=== PATIENT | female | born 1945 | race Caucasian/White ===

== ENCOUNTER 2016-02-18 02:58 | Emergency (ER) | payer MEDICARE, MEDICAID ==
[2016-02-18 02:59] VITALS: BMI 29.6
[2016-02-18] MEDS ORDERED: NS 1,000 ML IV ONE (03:08)
[2016-02-18 03:20] VITALS: TEMP 99.5
--- NOTE | 2016-02-18 03:42 | EDPRACDOC ---
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 fell out of bed injuring R hip, abrasion to R lower leg. BIB EMS and was given 75mcg fentanyl. On arrival no longer in pain. She denies striking her head or hurting her neck, no weakness or numbness. She has h/o Cirrhosis, DNR paperwork and recent ED visit paperwork with her. Pain Severity: Reports: Moderate Injuries/Pain Location: Reports: lower extremity Reason for Fall: Reports: unknown Loss of Consciousness: no loss of consciousness Modifying Factors: improves with: pain medication Associated Symptoms (Fall): Denies: chest pain, dizziness, headache Allergies/Adverse Reactions: Allergies ciprofloxacin [From Cipro] Allergy (Unknown, Verified 02/18/16 03:19) Rash-Generalized ciprofloxacin HCl [From Cipro] Allergy (Unknown, Verified 02/18/16 03:19) Rash-Generalized amoxicillin [Amoxicillin] Allergy (Verified 02/18/16 03:19) Rash-Generalized doxycycline Allergy (Verified 02/18/16 03:19) Rash-Generalized Home Medications: Ambulatory Orders Simvastatin [Zocor] 20 mg PO HS 09/07/12 Pantoprazole Sodium [Protonix] 40 mg PO BID 03/23/13 Fenofibrate [Lofibra] 160 mg PO HS 05/28/13 Gabapentin [Neurontin] 800 mg PO QID 05/28/13 Metformin HCl [Metformin HCl ER] 1,000 mg PO BID 06/20/13 Glipizide 5 mg PO BID 12/22/14 Insulin Aspart [Novolog] 0 units SQ .SSI 12/23/14 Ferrous Sulfate [Iron] 325 mg PO TID 12/27/14 Oxycodone HCl [Oxycodone Immediate Release] 10 mg PO Q8H PRN 04/09/15 Montelukast Sodium [Singulair] 10 mg PO HS #30 tablet 04/11/15 Insulin Glargine,Hum.rec.anlog [Toujeo Solostar] 70 unit SQ QAM 05/30/15 Carvedilol [Coreg] 3.125 mg PO BID 07/18/15 Lisinopril [Zestril] 5 mg PO DAILY 07/18/15 Nitroglycerin Patch [Nitro Dur] 0.4 mg TOP DAILY #30 patch 07/25/15 Hydroxyzine HCl 50 mg PO QHS 11/13/15 Lactulose [Constulose] 30 ml PO BID 11/13/15 Sucralfate [Carafate] 1 gm PO ACHS 11/26/15 Ondansetron [Zofran Odt] 4 mg PO Q6H PRN 02/18/16 Oxycodone HCl [Roxicodone] 5 mg PO Q4 PRN 02/18/16 Tramadol HCl 50 mg PO BID #12 tablet 02/18/16 ED Past Medical History - History Reviewed Yes Nurses notes reviewed and agree except as marked - Patient Medical History Neurological History: Reports: Cerebrovascular Accident (Yes- 2006), Dementia ( mild). Denies: Seizures Cardiac History: Reports: Coronary Artery Disease, Atrial Fibrillation ( paroxysmal), Hypertension, Congestive Heart Failure (Diastolic dysfunction seen on echocardiogram from May 2015), Stress Test (04/2015: negative for ischemia) , Hypercholesterolemia, Valvular Heart Disease (Aortic stneosis on cardiac US), Syncope Respiratory History: Reports: COPD (Home O2 at 3l/min), Pneumonia GI/ History: Reports: Urinary Tract Infection, Liver Failure (CRYTOGENIC CIRRHOSIS), Gastroesophageal Reflux, Ulcer (DU and esophageal ulcer in 2005), Diverticulosis Musculoskeletal History: Reports: Arthritis (and degenerative disc disease. Multiple vertebral compression fractures.) Psychological History: Reports: Anxiety. Denies: Depression, Substance Use Disorder Systemic History: Reports: Anemia, Diabetes (neuropathy). Denies: Cancer Surgical History: Reports: Cholecystectomy, Other (cataracts, carotid endartectomy-R) - Family Medical History Reports: Hypertension, Diabetes, Cancer (Mother - pancreatic; Sister - uterine; no family history of colon cancer), Cardiac Disorders (Coronary artery disease) . Denies: Stroke - Social Medical History Smoking Status: Former smoker Social History: Denies: Substance Use Disorder EDM Review of Systems - Review of Systems ROS Negative Except as Marked: Yes All systems reviewed and were negative except as marked - Physical Exam Constitutional: Alert (Awake), No apparent distress Oriented to: Time, Person, Place Last recorded Vital Signs: Last Vital Signs Temp 99.5 F 02/18/16 03:11 Pulse 79 02/18/16 03:11 Resp 22 02/18/16 03:11 BP 137/59 L 01/11/17 03:11 Pulse Ox 91 02/18/16 03:11 Oxygen Pulse Oxygen Saturation 91 O2 Device Nasal Cannula Oxygen Flow Rate 3 Fraction of Inspired Oxygen ( FIO2) - HEENT Head: Normal ( normocephalic) Eye Exam: Normal (PERRL, EOMI, Sclera white) Oropharynx: Normal (Pharynx:Moist without exudate,Gums-no swelling) Nose: No Symptoms Reported (septum midline) Neck: Normal (FROM, trachea at midline). negative: Crepitus, Step off, Tender - Respiratory/Cardiovascular Respiratory: Normal - CTA (BBS clear to auscultation without adventitious sounds ) Cardiovascular: Normal (RRR without murmur, gallop or rub) - GI Auscultation: Normal (NABS) Palpation: Normal (Soft,No rebound or guarding, non distended) Tenderness: Non tender - Musculoskeletal Back: Normal (Non-Tender) Extremities: Other (ttp ovr R hip, no deformity and distal N/V intact, pelvis stable. mild abrasion R kelsey no bony tendrness.) - Integumentary Skin: Normal, Warm, Dry Lymphatics: Normal (no adenopathy) - Neurologic Motor Function: Normal (Normal tone, Pulses 2+ No cyanosis or edema, FROM) Cranial Nerve: Normal (CN II-X11 intact sensation, strength 5/5) Cerebellar: Normal Mood Description: Normal - Re-evaluation Re-evaluation 1 Re-evaluation Time: 06:03 (still in pain R hip, has scheduled outpatient blood transfusion at 8am, will d/c with plan close follow up, consider MRI for any persistent R hip pain. ) - Results 02/18/16 03:35 02/18/16 03:35 - EKG EKG #1 EKG Time: 03:17 -: Yes EKG interpreted by me Rate: bpm: 76 [place]: Normal Rhythm: NSR Block: None Hypertrophy: None ST: Nonsp - Diagnostic Imaging Hip Image interpreted by: Radiologist Exam(s): [id number] RAD/DG HIP COMPLETE 2+V-R CLINICAL DATA: Right hip pain after fall at home. Fall getting up to use the bathroom. EXAM: RIGHT HIP (WITH PELVIS) 2-3 VIEWS COMPARISON: None. FINDINGS: The cortical margins of the bony pelvis and right hip are intact. No fracture. Pubic symphysis and sacroiliac joints are congruent. Both femoral heads are well-seated in the respective acetabula. Mild degenerative change of the right hip. IMPRESSION: No fracture or dislocation of the pelvis or right hip. Electronically Signed By: Eli Perez M.D. On: 02/18/2016 03:40 Electronically Signed By: Eli Perez MD Electronically Signed Date/Time: [id number] Dictate Date/Time: 02/18/16 0338 Technologist: Kassy Ward Transcribed By: Onesimo Transcribed Date/Time: 02/18/16 0340 Abdomen Image interpreted by: Radiologist EXAM: CT ABDOMEN AND PELVIS WITHOUT CONTRAST TECHNIQUE: Multidetector CT imaging of the abdomen and pelvis was performed following the standard protocol without IV contrast. COMPARISON: CT dated 07/18/2015 and ultrasound dated 11/05/2015 FINDINGS: Evaluation of this exam is limited in the absence of intravenous contrast. The visualized lung bases are clear. There is coronary vascular calcification. No intra-abdominal free air or free fluid. Cirrhosis. A 1.6 x 1.6 cm ill-defined focal peripheral hypodensity in the liver anteriorly (series 2 image 8) is not well characterized and may be artifactual. Underlying lesion is not excluded. MRI may provide better evaluation. Cholecystectomy. The pancreas appears unremarkable. Top-normal spleen measuring 13 cm. The adrenal glands, kidneys, visualized ureters, and urinary bladder appear unremarkable. The uterus is grossly unremarkable. There is a 3.3 cm cyst in the right ovary similar to the prior CT. Ultrasound may provide better evaluation There scattered sigmoid diverticula without active inflammation. Constipation. No evidence of bowel obstruction or inflammation. Appendectomy. There is aortoiliac atherosclerotic disease. No portal venous gas identified. There is no adenopathy. The abdominal wall soft tissues appear unremarkable. There is degenerative changes of the spine. No acute fracture. Stable appearing T12 compression fracture. No acute fracture identified. IMPRESSION: Cirrhosis. Ill-defined hepatic hypodensity may be artifactual or represent an underlying lesion. MRI may provide better evaluation. Sigmoid diverticulosis. Constipation. No evidence of bowel obstruction or inflammation. No hydronephrosis or nephrolithiasis. Stop Stable appearing 3.3 cm right ovarian cyst. Electronically Signed By: Owen Russo M.D. On: 02/18/2016 05:49 Decision Time to Discharge: 06:04 - Departure Yes I personally saw and evaluated the patient. Disposition: Home Condition: Stable Final Diagnosis: Falls Instructions: RICE: Routine Care for Injuries Education/Counseling Given To: Patient Education/Counseling Given Regarding: Diagnosis, Treatment, Follow Up Prescriptions: Tramadol HCl 50 mg PO BID #12 tablet Additional Instructions: return to the ED for any ongoing right hip pain or trouble walking
[2016-02-18 03:53] LABS: AUTOMATED BASOPHIL 0.6 % (0-2); AUTOMATED EOSINOPHIL 2.4 % (0-5); AUTOMATED LYMPH 16.2 % (17-44); AUTOMATED MONOCYTE 11.2 % (3-10); AUTOMATED NEUTROPHIL 69.6 % (45-76); MPV 11.1 fL (7.4-10.4)
[2016-02-18 03:59] LABS: LEUKOCYTES/URINE TRACE (NEGATIVE); NITRITE/URINE NEG (NEGATIVE); URINE OCCULT BLOOD NEG (NEG/TRACE)
[2016-02-18 04:04] LABS: BLOOD UREA NITROGEN 29 MG/DL (7-17); CALC CORRECTED 9.7 MG/DL (8.4-10.2); CALCIUM 9.3 MG/DL (8.4-10.2); CALCULATED OSMOLALITY 278 MOs/Kg (270-290); CHLORIDE 92 mEq/L (98-107); GLUCOSE 358 MG/DL (70-99); SODIUM LEVEL 134 mEq/L (137-146); TOTAL PROTEIN 6.5 G/DL (6.3-8.2)
[2016-02-18] MEDS ORDERED: REGULAR INSULIN 100 UNITS/ML - 3 ML VIAL SQ ONE (04:30)
--- NOTE | 2016-02-18 05:51 | DIRPT ---
CLINICAL DATA: 70-year-old female with fall and right-sided abdominal pain EXAM: CT ABDOMEN AND PELVIS WITHOUT CONTRAST TECHNIQUE: Multidetector CT imaging of the abdomen and pelvis was performed following the standard protocol without IV contrast. COMPARISON: CT dated 07/18/2015 and ultrasound dated 11/05/2015 FINDINGS: Evaluation of this exam is limited in the absence of intravenous contrast. The visualized lung bases are clear. There is coronary vascular calcification. No intra-abdominal free air or free fluid. Cirrhosis. A 1.6 x 1.6 cm ill-defined focal peripheral hypodensity in the liver anteriorly (series 2 image 8) is not well characterized and may be artifactual. Underlying lesion is not excluded. MRI may provide better evaluation. Cholecystectomy. The pancreas appears unremarkable. Top-normal spleen measuring 13 cm. The adrenal glands, kidneys, visualized ureters, and urinary bladder appear unremarkable. The uterus is grossly unremarkable. There is a 3.3 cm cyst in the right ovary similar to the prior CT. Ultrasound may provide better evaluation There scattered sigmoid diverticula without active inflammation. Constipation. No evidence of bowel obstruction or inflammation. Appendectomy. There is aortoiliac atherosclerotic disease. No portal venous gas identified. There is no adenopathy. The abdominal wall soft tissues appear unremarkable. There is degenerative changes of the spine. No acute fracture. Stable appearing T12 compression fracture. No acute fracture identified. IMPRESSION: Cirrhosis. Ill-defined hepatic hypodensity may be artifactual or represent an underlying lesion. MRI may provide better evaluation. Sigmoid diverticulosis. Constipation. No evidence of bowel obstruction or inflammation. No hydronephrosis or nephrolithiasis. Stop Stable appearing 3.3 cm right ovarian cyst. Electronically Signed By: Owen Russo M.D. On: 02/18/2016 05:49
[2016-02-18] MEDS ORDERED: FENTANYL 100 MCG/2 ML VIAL IV ONE (06:06)
[2016-02-18] MEDS ORDERED: ONDANSETRON HCL 4 MG/2 ML VIAL IV ONE (06:06)
[2016-02-18 06:16] VITALS: BP 109/53; PULSE 70
== END 2016-02-18 08:05 | disposition home or self-care (01) ==
LOC: ED 02:58
DX: M25.551 Pain in right hip (principal); W06.XXXA Fall from bed, initial encounter; Y93.9 Activity, unspecified; Y92.009 Unspecified place in unspecified non-institutional (private) residence as the place of occurrence of the external cause
CPT/HCPCS: 36415; 73502; 74176; 80053; 81001; 83690; 84484; 85025; 93005; 96361; 96374; 96375; 99284; A9270; J2405; J3010; J3490

== ENCOUNTER 2016-03-08 15:05 | Emergency (ER) | payer MEDICARE, MEDICAID ==
[2016-03-08 15:19] VITALS: BMI 29.4
[2016-03-08 15:40] LABS: AUTOMATED BASOPHIL 1.3 % (0-2); AUTOMATED EOSINOPHIL 5.1 % (0-5); AUTOMATED LYMPH 22.1 % (17-44); AUTOMATED MONOCYTE 12.1 % (3-10); AUTOMATED NEUTROPHIL 59.4 % (45-76); MPV 11.4 fL (7.4-10.4)
[2016-03-08 15:53] LABS: BLOOD UREA NITROGEN 20 MG/DL (7-17); CALC CORRECTED 8.7 MG/DL (8.4-10.2); CALCIUM 8.5 MG/DL (8.4-10.2); CALCULATED OSMOLALITY 276 MOs/Kg (270-290); CHLORIDE 95 mEq/L (98-107); GLUCOSE 171 MG/DL (70-99); SODIUM LEVEL 140 mEq/L (137-146); TOTAL PROTEIN 7.3 G/DL (6.3-8.2)
[2016-03-08 15:55] LABS: PARTIAL THROMB. TIME 26.1 SEC (22-35); PT-INR 1.1
[2016-03-08 16:54] VITALS: TEMP 98.4
[2016-03-08] MEDS ORDERED: NS 1,000 ML IV ONE (16:56)
[2016-03-08] MEDS ORDERED: ONDANSETRON HCL 4 MG/2 ML VIAL IV STA (16:56)
[2016-03-08] MEDS ORDERED: OSELTAMIVIR PHOSPHATE 75 MG CAP PO ONE (17:00)
[2016-03-08] MEDS ORDERED: OSELTAMIVIR 6 MG/ML ORAL SUSP PO SCH (17:00)
--- NOTE | 2016-03-08 17:01 | EDPRACDOC ---
- General Information Chief Complaint: Dyspnea/Resp distress Stated Complaint: SHORTNESS OF BREATH - SENT FROM PCP Time Seen by Provider: 03/08/16 16:51 Mode Of Arrival: Car Home Medications: Home Medications Simvastatin [Zocor] 20 mg PO HS 09/07/12 Pantoprazole Sodium [Protonix] 40 mg PO BID 03/23/13 Fenofibrate [Lofibra] 160 mg PO HS 05/28/13 Gabapentin [Neurontin] 800 mg PO QID 05/28/13 Metformin HCl [Metformin HCl ER] 1,000 mg PO BID 06/20/13 Glipizide 5 mg PO BID 12/22/14 Insulin Aspart [Novolog] 0 units SQ .SSI 12/23/14 Ferrous Sulfate [Iron] 325 mg PO TID 12/27/14 Oxycodone HCl [Oxycodone Immediate Release] 10 mg PO Q8H PRN 04/09/15 Montelukast Sodium [Singulair] 10 mg PO HS #30 tablet 04/11/15 Insulin Glargine,Hum.rec.anlog [Toujeo Solostar] 70 unit SQ QAM 05/30/15 Carvedilol [Coreg] 6.25 mg PO BID 07/18/15 Lisinopril [Zestril] 10 mg PO DAILY 07/18/15 Nitroglycerin Patch [Nitro Dur] 0.4 mg TOP DAILY #30 patch 07/25/15 Hydroxyzine HCl 50 mg PO BID 11/13/15 Lactulose [Constulose] 30 ml PO BID 11/13/15 Sucralfate [Carafate] 1 gm PO ACHS 11/26/15 Clarithromycin 500 mg PO .BID X 7D 03/08/16 Furosemide [Lasix] 60 mg PO DAILY 03/08/16 Oseltamivir Phosphate [Tamiflu] 75 mg PO BID #10 cap 03/08/16 Allergies/Adverse Reactions: Allergies Allergy/AdvReac Type Severity Reaction Status Date / Time ciprofloxacin [From Cipro] Allergy Unknown Rash-Genera Verified 03/08/16 15:17 lized ciprofloxacin HCl Allergy Unknown Rash-Genera Verified 03/08/16 15:17 [From Cipro] lized amoxicillin [Amoxicillin] Allergy Rash-Genera Verified 03/08/16 15:17 lized doxycycline Allergy Rash-Genera Verified 03/08/16 15:17 lized - History of Present Illness HPI: PT PRESENTS FROM DOCTOR'S OFFICE WITH DYSPNEA. SHE TESTED POSITIVE FOR THE FLU AFTER BEING TREATED IN OUTPATIENT SETTING FOR PNEUMONIA WITH CLARITHROMYCIN. Shortness of Breath: Moderate Relevant History: Reports: Influenza A exposure (POSITIVE TODAY) Rhinorrhea: Reports: Clear SOB Worsens with: Reports: Exertion, Coughing Associated Signs and symptoms: Reports: Cough, Fever, Nausea, Diarrhea, Myalgia. Denies: Vomiting ED Past Medical History - History Reviewed Yes Nurses notes reviewed and agree except as marked - Patient Medical History Neurological History: Reports: Cerebrovascular Accident (Yes- 2006), Dementia ( mild). Denies: Seizures Cardiac History: Reports: Coronary Artery Disease, Atrial Fibrillation ( paroxysmal), Hypertension, Congestive Heart Failure (Diastolic dysfunction seen on echocardiogram from May 2015), Stress Test (04/2015: negative for ischemia) , Hypercholesterolemia, Valvular Heart Disease (Aortic stneosis on cardiac US), Syncope Respiratory History: Reports: COPD (Home O2 at 3l/min), Pneumonia GI/ History: Reports: Urinary Tract Infection, Liver Failure (CRYTOGENIC CIRRHOSIS), Gastroesophageal Reflux, Ulcer (DU and esophageal ulcer in 2005), Diverticulosis Musculoskeletal History: Reports: Arthritis (and degenerative disc disease. Multiple vertebral compression fractures.) Psychological History: Reports: Anxiety. Denies: Depression, Substance Use Disorder Systemic History: Reports: Anemia, Diabetes (neuropathy). Denies: Cancer Surgical History: Reports: Cholecystectomy, Other (cataracts, carotid endartectomy-R) - Family Medical History Reports: Hypertension, Diabetes, Cancer (Mother - pancreatic; Sister - uterine; no family history of colon cancer), Cardiac Disorders (Coronary artery disease) . Denies: Stroke - Social Medical History Smoking Status: Former smoker Social History: Denies: Substance Use Disorder Lives In: Home EDM Review of Systems - Review of Systems ROS Negative Except as Marked: Yes All systems reviewed and were negative except as marked Constitutional: Chills, Fever, Fatigue, Weakness Respiratory: Shortness of Breath Gastrointestinal: Diarrhea. negative: Nausea, Pain, Vomiting Genitourinary: negative: Dysuria Musculoskeletal: Other (MYALGIAS) - Physical Exam Constitutional: Alert Oriented to: Time, Person, Place Last recorded Vital Signs: Last Vital Signs Temp 98.4 F 03/08/16 15:19 Pulse 66 03/08/16 15:19 Resp 20 03/08/16 15:19 BP 151/59 L 03/08/16 15:19 Pulse Ox 96 03/08/16 15:19 Oxygen Pulse Oxygen Saturation 96 O2 Device Nasal Cannula Oxygen Flow Rate 3 Fraction of Inspired Oxygen ( FIO2) - HEENT Head: negative: Deformity, Laceration Eye Exam: negative: Conjunctival Injection, Pale Conjunctiva Oropharynx: negative: Membranes Dry Nose: negative: Congestion, Discharge Neck: negative: Limited ROM - Respiratory/Cardiovascular Respiratory: negative: Accessory Muscle Use, Diminished, Retractions, Tachypnea Cardiovascular: negative: Bradycardia, Tachycardia, Irregular - GI Auscultation: Normal Palpation: Normal Tenderness: Non tender - Musculoskeletal Extremities: Pedal Pulse (PALPABLE), Radial Pulse (PALPABLE). negative: Calf Tenderness, Pedal Edema - Integumentary Skin: Warm, Dry. negative: Rash - Neurologic Memory Impaired: Normal Motor Function: Normal Mood Description: Anxious Thought: Coherent Perception: Normal ED SOB MDM - Results Result Diagrams: 03/08/16 15:20 03/08/16 15:20 Results: WBC 4.4 xk/uL (3.8-10.8) 03/08/16 15:20 RBC 3.61 xM/uL (4.20-5.40) L 03/08/16 15:20 Hgb 10.6 g/dL (12.0-16.0) L 03/08/16 15:20 Hct 32.0 % (36-47) L 03/08/16 15:20 MCV 89 fL (81-99) 03/08/16 15:20 MCH 29.2 pg (27-32) 03/08/16 15:20 MCHC 32.9 g/dl (33-36) L 03/08/16 15:20 RDW 13.7 % (11.5-14.5) 03/08/16 15:20 Plt Count 110 xk/uL (130-400) L 03/08/16 15:20 MPV 11.4 fL (7.4-10.4) H 03/08/16 15:20 Neut % (Auto) 59.4 % (45-76) 03/08/16 15:20 Lymph % (Auto) 22.1 % (17-44) 03/08/16 15:20 [place]acken % (Auto) 12.1 % (3-10) H 03/08/16 15:20 Eos % (Auto) 5.1 % (0-5) H 03/08/16 15:20 Baso % (Auto) 1.3 % (0-2) 03/08/16 15:20 Absolute Neuts (auto) 2.60 xk/uL (1.7-8.2) 03/08/16 15:20 Absolute Lymphs (auto) 0.97 xk/uL (0.65-4.75) 03/08/16 15:20 PT 11.7 SEC (9.2-11.2) H 03/08/16 15:20 INR 1.1 03/08/16 15:20 APTT 26.1 SEC (22-35) 03/08/16 15:20 Sodium 140 mEq/L (137-146) 03/08/16 15:20 Potassium 3.1 mEq/L (3.5-5.1) L 03/08/16 15:20 Chloride 95 mEq/L (98-107) L 03/08/16 15:20 Carbon Dioxide 34 mMOL/L (22-33) H 03/08/16 15:20 Anion Gap 14 mEq/L (8-16) 03/08/16 15:20 BUN 20 MG/DL (7-17) H 03/08/16 15:20 Creatinine 0.80 MG/DL (0.52-1.04) 03/08/16 15:20 Estimated GFR (MDRD) > 60 mL/min (>=60) 03/08/16 15:20 Glucose 171 MG/DL (70-99) H 03/08/16 15:20 Calculated Osmolality 276 MOs/Kg (270-290) 03/08/16 15:20 Lactic Acid 1.9 mEq/L (0.7-2.1) 03/08/16 15:20 Calcium 8.5 MG/DL (8.4-10.2) 03/08/16 15:20 Corrected Calcium 8.7 MG/DL (8.4-10.2) 03/08/16 15:20 Total Bilirubin 0.6 MG/DL (0.2-1.3) 03/08/16 15:20 AST 49 IU/L (14-36) H 03/08/16 15:20 ALT 42 IU/L (9-52) 03/08/16 15:20 Alkaline Phosphatase 91 IU/L (55-165) 03/08/16 15:20 Troponin I < 0.01 ng/mL (<.04) 03/08/16 15:20 [id number]-[id number] Pept 513 pg/mL (0-900) 03/08/16 15:20 Total Protein 7.3 G/DL (6.3-8.2) 03/08/16 15:20 Albumin 3.8 G/DL (3.5-5.0) 03/08/16 15:20 Lab Results 03/08/16 03/08/16 03/08/16 15:20 15:20 15:20 WBC 4.4 RBC 3.61 L Hgb 10.6 L Hct 32.0 L MCV 89 MCH 29.2 MCHC 32.9 L RDW 13.7 Plt Count 110 L MPV 11.4 H Neut % (Auto) 59.4 Lymph % (Auto) 22.1 [place]ack[place] % (Auto) 12.1 H Eos % (Auto) 5.1 H Baso % (Auto) 1.3 Absolute Neuts (auto) 2.60 Absolute Lymphs (auto) 0.97 PT 11.7 H INR 1.1 APTT 26.1 Sodium Potassium Chloride Carbon Dioxide Anion Gap BUN Creatinine Estimated GFR (MDRD) Glucose Calculated Osmolality Lactic Acid 1.9 Calcium Corrected Calcium Total Bilirubin AST ALT Alkaline Phosphatase Troponin I Wcr-[id number]-Hvtavmruzja Pept Total Protein Albumin 03/08/16 15:20 WBC RBC Hgb Hct MCV MCH MCHC RDW Plt Count MPV Neut % (Auto) Lymph % (Auto) [place] % (Auto) Eos % (Auto) Baso % (Auto) Absolute Neuts (auto) Absolute Lymphs (auto) PT INR APTT Sodium 140 Potassium 3.1 L Chloride 95 L Carbon Dioxide 34 H Anion Gap 14 BUN 20 H Creatinine 0.80 Estimated GFR (MDRD) > 60 Glucose 171 H Calculated Osmolality 276 Lactic Acid Calcium 8.5 Corrected Calcium 8.7 Total Bilirubin 0.6 AST 49 H ALT 42 Alkaline Phosphatase 91 Troponin I < 0.01 Emo-H-Dnmswviqahc Pept 513 Total Protein 7.3 Albumin 3.8 - EKG EKG #1 EKG Time: 16:58 -: Yes EKG interpreted by me Rate: bpm: 63 [place]: Normal Rhythm: NSR Block: None Hypertrophy: None ST: Normal Decision Time to Discharge: 18:42 - Departure Yes I personally saw and evaluated the patient. 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 [Primary Care Provider] - One Week Prescriptions: New Oseltamivir Phosphate [Tamiflu] 75 mg PO BID #10 cap Continue Simvastatin [Zocor] 20 mg PO HS Pantoprazole Sodium [Protonix] 40 mg PO BID Gabapentin [Neurontin] 800 mg PO QID Fenofibrate [Lofibra] 160 mg PO HS Metformin HCl [Metformin HCl ER] 1,000 mg PO BID Glipizide 5 mg PO BID Insulin Aspart [Novolog] 0 units SQ .SSI Ferrous Sulfate [Iron] 325 mg PO TID Oxycodone HCl [Oxycodone Immediate Release] 10 mg PO Q8H PRN PRN Reason: Pain Montelukast Sodium [Singulair] 10 mg PO HS #30 tablet Insulin Glargine,Hum.rec.anlog [Toujeo Solostar] 70 unit SQ QAM Lisinopril [Zestril] 10 mg PO DAILY Carvedilol [Coreg] 6.25 mg PO BID Nitroglycerin Patch [Nitro Dur] 0.4 mg TOP DAILY #30 patch Lactulose [Constulose] 30 ml PO BID Hydroxyzine HCl 50 mg PO BID Sucralfate [Carafate] 1 gm PO ACHS Furosemide [Lasix] 60 mg PO DAILY Clarithromycin 500 mg PO .BID X 7D
--- NOTE | 2016-03-08 17:09 | DIRPT ---
CLINICAL DATA: 70-year-old currently being treated by his primary provider for an upper respiratory infection, presenting with worsening cough, chest congestion and shortness of breath today. EXAM: PORTABLE CHEST 1 VIEW COMPARISON: 08/30/2015 and earlier. FINDINGS: Cardiac silhouette normal in size, unchanged. Prominent bronchovascular markings diffusely, unchanged. No new pulmonary parenchymal abnormalities. No visible pleural effusions. IMPRESSION: No acute cardiopulmonary disease. Electronically Signed By: Gustavo Roblero M.D. On: 03/08/2016 17:06
[2016-03-08 17:36] LABS: ALLEN'S TEST PASS; BEb 11.8 (+/- 2); TCO2 38.1 MMOL/L (23-27)
[2016-03-08 17:37] LABS: ABG Draw Site RRA
[2016-03-08 19:18] VITALS: BP 151/70; PULSE 70
== END 2016-03-08 19:15 | disposition home or self-care (01) ==
LOC: ED 15:05
DX: J09.X2 Influenza due to identified novel influenza A virus with other respiratory manifestations (principal)
CPT/HCPCS: 36415; 36600; 71010; 80053; 82803; 83605; 83880; 84484; 85025; 85610; 85730; 87040; 93005; 96374; 99284; A9270; J2405; J3490

== ENCOUNTER 2016-03-12 20:44 | Inpatient (IN) | payer MEDICARE, MEDICAID ==
[2016-03-12 20:59] VITALS: BMI 28.8
--- NOTE | 2016-03-12 21:26 | DIRPT ---
CLINICAL DATA: Patient with shortness of breath for 2 days. Recently diagnosed with the flu. Congested cough. EXAM: CHEST 2 VIEW COMPARISON: Chest radiograph 03/08/2016 FINDINGS: Stable cardiac and mediastinal contours. Bibasilar linear opacities. No large area of pulmonary consolidation. Apical emphysematous change. No pleural effusion or pneumothorax. IMPRESSION: Linear opacities bilateral lung bases favored to represent atelectasis. Electronically Signed By: Richard Antoine M.D. On: 03/12/2016 21:24
[2016-03-12] MEDS ORDERED: METHYLPREDNISOLONE 125 MG/2 ML VIAL IV ONE (21:27)
[2016-03-12] MEDS ORDERED: Albuterol/Ipratropium Neb 3 ML NEB NEB ONE (21:27)
--- NOTE | 2016-03-12 21:31 | EDPRACDOC ---
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rec.anlog [Toujeo Solostar] 70 unit SQ QAM 05/30/15 Carvedilol [Coreg] 6.25 mg PO BID 07/18/15 Lisinopril [Zestril] 10 mg PO DAILY 07/18/15 Nitroglycerin Patch [Nitro Dur] 0.4 mg TOP DAILY #30 patch 07/25/15 Hydroxyzine HCl 50 mg PO BID 11/13/15 Lactulose [Constulose] 30 ml PO BID 11/13/15 Sucralfate [Carafate] 1 gm PO ACHS 11/26/15 Ondansetron [Zofran Odt] 4 mg PO Q6H PRN #10 tab.rapdis 02/14/16 Oxycodone HCl [Roxicodone] 5 mg PO Q4 PRN #10 tablet 02/14/16 Clarithromycin 500 mg PO .BID X 7D 03/08/16 Furosemide [Lasix] 60 mg PO DAILY 03/08/16 Oseltamivir Phosphate [Tamiflu] 75 mg PO BID #10 cap 03/08/16 Allergies/Adverse Reactions: Allergies Allergy/AdvReac Type Severity Reaction Status Date / Time Penicillins Allergy Intermediate Hives* Verified 03/12/16 20:59 ciprofloxacin [From Cipro] Allergy Unknown Rash-Genera Verified 03/12/16 20:59 lized ciprofloxacin HCl Allergy Unknown Rash-Genera Verified 03/12/16 20:59 [From Cipro] lized amoxicillin [Amoxicillin] Allergy Rash-Genera Verified 03/12/16 20:59 lized doxycycline Allergy Rash-Genera Verified 03/12/16 20:59 lized - History of Present Illness Onset: WEEKS HPI: TREATED OUTPATIENT WITH MACROLIDE, CONTINUED SYMPTOMS, THEN TESTED POSITIVE FOR INFLUENZA 4 DAYS AGO. TREATED WITH TAMIFLU. SINCE THEN, COUGHING, NONPRODUCTIVE ADVANCING TO PRODUCTIVE. GETTING WORSE. NOT CURRENTLY ON STERIODS. Relevant History: Reports: COPD, Influenza A exposure Cough: Reports: Productive Rhinorrhea: Reports: Clear SOB Worsens with: Reports: Exertion, Movement, Anxiety, Coughing SOB Improves with: Reports: Inhaler, Rest Associated Signs and symptoms: Reports: Cough, Fever, Nasal Symptoms - Treatment Prior to ED Arrival Reported Medications/Treatment NETWORK ADMIN Treated With Medication NETWORK ADMIN YES Meds/Treatments Given O2 via Cannula Medications NETWORK ADMIN (Medication/ DUONEB IN ROUTE TO HOSPITAL Dose/Time) IV Yes ED Past Medical History - History Reviewed Yes Nurses notes reviewed and agree except as marked - Patient Medical History Neurological History: Reports: Cerebrovascular Accident (Yes- 2006), Dementia ( mild). Denies: Seizures Cardiac History: Reports: Coronary Artery Disease, Atrial Fibrillation ( paroxysmal), Hypertension, Congestive Heart Failure, Stress Test (04/2015: negative for ischemia), Hypercholesterolemia, Valvular Heart Disease (Aortic stneosis on cardiac US), Syncope Respiratory History: Reports: COPD, Pneumonia GI/ History: Reports: Urinary Tract Infection, Liver Failure (CRYTOGENIC CIRRHOSIS), Gastroesophageal Reflux, Ulcer (DU and esophageal ulcer in 2005), Diverticulosis Musculoskeletal History: Reports: Arthritis (and degenerative disc disease. Multiple vertebral compression fractures.) Psychological History: Reports: Depression, Anxiety. Denies: Substance Use Disorder Systemic History: Reports: Anemia, Diabetes (type 2 DM). Denies: Cancer Surgical History: Reports: Appendectomy, Cholecystectomy, Other (cataracts, carotid endartectomy-R) - Family Medical History Reports: Hypertension, Diabetes, Cancer (Mother - pancreatic; Sister - uterine; no family history of colon cancer), Cardiac Disorders (Coronary artery disease) . Denies: Stroke - Social Medical History Smoking Status: Former smoker Social History: Denies: Substance Use Disorder ETOH: None Substance Abuse: None Lives In: Home EDM Review of Systems - Review of Systems ROS Negative Except as Marked: Yes All systems reviewed and were negative except as marked - Physical Exam Constitutional: Alert, Cachectic, Distress, Restless Oriented to: Time, Person, Place Last recorded Vital Signs: Last Vital Signs Temp 98.6 F 03/12/16 20:53 Pulse 79 03/12/16 20:53 Resp 22 03/12/16 20:53 BP 125/69 03/12/16 20:53 Pulse Ox 93 03/12/16 20:53 Oxygen Pulse Oxygen Saturation 93 O2 Device Nasal Cannula Oxygen Flow Rate 3 Fraction of Inspired Oxygen ( FIO2) - HEENT Head: Normal Eye Exam: negative: Pale Conjunctiva, Scleral Icterus Oropharynx: Normal. negative: Membranes Dry Nose: No Symptoms Reported Neck: Normal. negative: Edema, Limited ROM, Lymphadenopathy, Meningeal Signs - Respiratory/Cardiovascular Respiratory: Accessory Muscle Use, Rales, Rhonchi, Tachypnea Cardiovascular: Normal - GI Auscultation: Normal, Absent Tenderness: Non tender Guerrier's Sign: Negative - Musculoskeletal Back: Normal Extremities: negative: Edema, Pedal Edema - Integumentary Skin: Normal, Warm, Dry - Neurologic Memory Impaired: Normal Motor Function: Normal Mood Description: Normal Thought: Coherent ED SOB MDM - Results Result Diagrams: 03/12/16 21:00 03/12/16 21:00 - EKG EKG #1 EKG Time: 20:56 -: Yes EKG interpreted by me Rate: bpm: 80 [place]: Normal Rhythm: NSR Block: None Hypertrophy: None ST: Nonsp - Diagnostic Imaging Chest Image interpreted by: Radiologist Diagnostic Imaging Comments: Patient Name: ANDREW STANFORD LOC: ED : 1945 AGE: 70 Order Date:03/12/16 Date of Service:04/23 Report # [id number] Ord Physician: Talisha Grimm MD Exam # [id number] Emergency Physician: Talisha Grimm MD Exam(s): [id number] RAD/DG CHEST 2V CLINICAL DATA: Patient with shortness of breath for 2 days. Recently diagnosed with the flu. Congested cough. EXAM: CHEST 2 VIEW COMPARISON: Chest radiograph 03/08/2016 FINDINGS: Stable cardiac and mediastinal contours. Bibasilar linear opacities. No large area of pulmonary consolidation. Apical emphysematous change. No pleural effusion or pneumothorax. IMPRESSION: Linear opacities bilateral lung bases favored to represent atelectasis. Electronically Signed By: Richard Antoine M.D. On: 03/12/2016 21:24 Electronically Signed By: Richard Antoine MD Electronically Signed Date/Time: Dictate Date/Time: 03/12/162121 Technologist: Gisella Tirado Transcribed By: Onesimo Transcribed Date/Time: 03/12/162123 - Departure Condition: Stable Final Diagnosis: Influenza and pneumonia, COPD with acute lower respiratory infection, Hypokalemia Instructions: COPD (Chronic Obstructive Pulmonary Disease) (ED) Education/Counseling Given To: Patient Education/Counseling Given Regarding: Diagnosis, Treatment, Prognosis Referrals: Rozina Recinos, [employer] [Primary Care Provider] - One Week Prescriptions: Continue Simvastatin [Zocor] 20 mg PO HS Pantoprazole Sodium [Protonix] 40 mg PO BID Gabapentin [Neurontin] 800 mg PO QID Fenofibrate [Lofibra] 160 mg PO HS Metformin HCl [Metformin HCl ER] 1,000 mg PO BID Glipizide 5 mg PO BID Insulin Aspart [Novolog] 0 units SQ .SSI Ferrous Sulfate [Iron] 325 mg PO TID Oxycodone HCl [Oxycodone Immediate Release] 10 mg PO Q8H PRN PRN Reason: Pain Montelukast Sodium [Singulair] 10 mg PO HS #30 tablet Insulin Glargine,Hum.rec.anlog [Toujeo Solostar] 70 unit SQ QAM Lisinopril [Zestril] 10 mg PO DAILY Carvedilol [Coreg] 6.25 mg PO BID Nitroglycerin Patch [Nitro Dur] 0.4 mg TOP DAILY #30 patch Lactulose [Constulose] 30 ml PO BID Hydroxyzine HCl 50 mg PO BID Sucralfate [Carafate] 1 gm PO ACHS Ondansetron [Zofran Odt] 4 mg PO Q6H PRN #10 tab.rapdis PRN Reason: Nausea/Vomiting Oxycodone HCl [Roxicodone] 5 mg PO Q4 PRN #10 tablet PRN Reason: Pain Furosemide [Lasix] 60 mg PO DAILY Clarithromycin 500 mg PO .BID X 7D Oseltamivir Phosphate [Tamiflu] 75 mg PO BID #10 cap Decision to Admit Time: 22:40 Decision to admit date: 03/12/16 Decision to admit: from ED - Physician Consulted Hospitalist Time Called: 22:40 Provider Called: Tim Hernández Time Truck Operator Returned Call: 22:40
[2016-03-12 21:37] LABS: AUTOMATED BASOPHIL 0.6 % (0-2); AUTOMATED LYMPH 32.1 % (17-44); AUTOMATED MONOCYTE 10.9 % (3-10); AUTOMATED NEUTROPHIL 53.4 % (45-76); MPV 11.4 fL (7.4-10.4)
[2016-03-12 21:43] LABS: ABG Draw Site Right Radial; ALLEN'S TEST PASS; BEb 7.4 (+/- 2); TCO2 33.4 MMOL/L (23-27)
[2016-03-12 21:48] LABS: BLOOD UREA NITROGEN 16 MG/DL (7-17); CALC CORRECTED 9.2 MG/DL (8.4-10.2); CALCIUM 8.8 MG/DL (8.4-10.2); CALCULATED OSMOLALITY 283 MOs/Kg (270-290); CHLORIDE 103 mEq/L (98-107); GLUCOSE 147 mg/dL (70-99); SODIUM LEVEL 145 mEq/L (137-146); TOTAL PROTEIN 7.2 G/DL (6.3-8.2)
[2016-03-12 22:10] LABS: LEUKOCYTES/URINE 2+ (NEGATIVE); NITRITE/URINE NEG (NEGATIVE); URINE OCCULT BLOOD NEG (NEG/TRACE)
[2016-03-12] MEDS: KCl 10 mEq/100 ml Premix (Run) 10 MEQ/100 ML RTU IV SCH (22:49)
[2016-03-12] MEDS ORDERED: CEFEPIME HYDROCHLORIDE 2 GM in D5W 100 ML IV ONE (23:00)
--- NOTE | 2016-03-12 23:53 | HISTPHYS ---
- Chief Complaint shortness of breath - History of Present Illness PRIMARY CARE PROVIDER: Rozina Recinos at [address] [place] [address] HPI: The patient is a 70 yo woman with COPD who presents with worsening shortness of breath. It started 5 days ago, and she went to her primary care provider 4 days ago, was diagnosed with Influenza (possibly A), was started on Tamiflu. She had been taking an antibiotic starting 7 or 8 days ago but she is not sure what she was taking it for. She had also been to the emergency department 4 days ago because her breathing worsened after her doctor's appointment; she was given additional medications and sent home with plan for follow up. Over the last 2 days, her shortness of breath worsened. Onset: 4-5 days ago but worse in the last 2 days. Duration: intermittent. Character: Can't get a good breath. Alleviated by: Nothing. Exacerbated by: exertion. Associated Symptoms: Coughing, non-productive. Wheezing. Shortness of breath. No chest pain. Occasional palpitations. No fever or chills. Muscle aches and joint pains. Diarrhea now. Headache now but not previously. Nose started bleeding today. No dysuria or hematuria. Treatments: none at home except usual medications. She is on day 4 of Tamiflu. - Medical History Cardiac History: Reports: Coronary Artery Disease, Atrial Fibrillation ( paroxysmal), Hypertension, Congestive Heart Failure, Stress Test (04/2015: negative for ischemia), Hypercholesterolemia, Valvular Heart Disease (Aortic stneosis on cardiac US), Syncope Respiratory History: Reports: COPD, Pneumonia GI/ History: Reports: Urinary Tract Infection, Liver Failure (CRYTOGENIC CIRRHOSIS), Gastroesophageal Reflux, Ulcer (DU and esophageal ulcer in 2005), Diverticulosis Musculoskeletal History: Reports: Arthritis (and degenerative disc disease. Multiple vertebral compression fractures.) Systemic History: Reports: Anemia, Diabetes (type 2 DM) Neurological History: Reports: Cerebrovascular Accident (Yes- 2006), Dementia ( mild) Psychological History: Reports: Depression, Anxiety - Surgical History Reports: Appendectomy, Cholecystectomy, Other (cataracts, carotid endartectomy-R ) - Medictions/Allergies Allergies Penicillins Allergy (Intermediate, Verified 03/12/16 20:59) Hives* ciprofloxacin [From Cipro] Allergy (Unknown, Verified 03/12/16 20:59) Rash-Generalized ciprofloxacin HCl [From Cipro] Allergy (Unknown, Verified 03/12/16 20:59) Rash-Generalized amoxicillin [Amoxicillin] Allergy (Verified 03/12/16 20:59) Rash-Generalized doxycycline Allergy (Verified 03/12/16 20:59) Rash-Generalized Current Medication List: Reviewed Home Medications Simvastatin [Zocor] 20 mg PO HS 09/07/12 Pantoprazole Sodium [Protonix] 40 mg PO BID 03/23/13 Fenofibrate [Lofibra] 160 mg PO HS 05/28/13 Gabapentin [Neurontin] 800 mg PO QID 05/28/13 Metformin HCl [Metformin HCl ER] 1,000 mg PO BID 06/20/13 Glipizide 5 mg PO BID 12/22/14 Insulin Aspart [Novolog] 0 units SQ .SSI 12/23/14 Ferrous Sulfate [Iron] 325 mg PO TID 12/27/14 Oxycodone HCl [Oxycodone Immediate Release] 10 mg PO Q8H PRN 04/09/15 Montelukast Sodium [Singulair] 10 mg PO HS #30 tablet 04/11/15 Insulin Glargine,Hum.rec.anlog [Toujeo Solostar] 70 unit SQ QAM 05/30/15 Carvedilol [Coreg] 6.25 mg PO BID 07/18/15 Lisinopril [Zestril] 10 mg PO DAILY 07/18/15 Nitroglycerin Patch [Nitro Dur] 0.4 mg TOP DAILY #30 patch 07/25/15 Hydroxyzine HCl 50 mg PO BID 11/13/15 Lactulose [Constulose] 30 ml PO BID 11/13/15 Sucralfate [Carafate] 1 gm PO ACHS 11/26/15 Ondansetron [Zofran Odt] 4 mg PO Q6H PRN #10 tab.rapdis 02/14/16 Oxycodone HCl [Roxicodone] 5 mg PO Q4 PRN #10 tablet 02/14/16 Clarithromycin 500 mg PO .BID X 7D 03/08/16 Furosemide [Lasix] 60 mg PO DAILY 03/08/16 Oseltamivir Phosphate [Tamiflu] 75 mg PO BID #10 cap 03/08/16 - Family History Reports: Hypertension, Diabetes, Cancer (Mother - pancreatic; Sister - uterine; no family history of colon cancer), Cardiac Disorders (Coronary artery disease) . Denies: Stroke - Social History Smoking Status: Former smoker Social History: Denies: Alcohol Use, Substance Use Disorder - Review of Systems GENERAL: No Fever, chills, or diaphoresis. Positive for fatigue/malaise. HEENT: No ear pain or discharge. No nasal discharge or bleeding. No throat pain or swelling. No eye pain or eye redness. RESPIRATORY: Cough, wheezing, and shortness of breath. CARDIOVASCULAR: No chest pain. Occasional palpitations. GI: Diarrhea. No abdominal pain, nausea, vomiting, constipation, or bloody stool. NEUROLOGICAL: Headache. No focal weakness. INTEGUMENT: no rashes, itching, or lesions. LYMPHATIC SYSTEM: no lymph node swelling or pain. MUSCULOSKELETAL: Muscle aches and joint pains. No joint swelling. GENITOURINARY: No dysuria or hematuria. ENDOCRINE: No polyuria or polydipsia. HEME: No chronic anemia, bleeding, or easy bruising. - Physical Exam Vital Signs: Initial Vitals Temperature 98.6 F 03/12/16 20:53 Pulse Rate 79 03/12/16 20:53 Respiratory Rate 22 03/12/16 20:53 Blood Pressure 125/69 03/12/16 20:53 Pulse Oxygen Saturation 93 03/12/16 20:53 Vital Signs - 24 hr 03/12/16 03/12/16 03/12/16 20:53 21:02 23:03 Temperature 98.6 F Pulse Rate 79 80 75 Respiratory 22 20 20 Rate Blood Pressure 125/69 132/80 168/102 H Pulse Oxygen 93 93 96 Saturation 03/12/16 23:33 Temperature Pulse Rate 72 Respiratory 18 Rate Blood Pressure 162/79 Pulse Oxygen 93 Saturation Weight: 83.4 kg Height: 5 feet 7 inches BMI: 28.8 - Other Exam Other Exam Findings: GENERAL: Ill-appearing, well nourished, in acute distress. HEENT: Normocephalic, atraumatic; pupils equal and round. Nares patent, without discharge, but bleeding noted on gown, no current bleeding from nares. No oropharyngeal lesions or erythema. Mucous membranes are dry. NECK: is supple, no masses, trachea midline. RESPIRATORY: Clear to auscultation bilaterally. Chest wall movements are symmetric. No use of accessory muscles to breathe. Intermittent tachypnea. Bilateral wheezing. Rhonchi on right. No rales. CARDIOVASCULAR: Normal S1, S2. Loud 3/6 systolic murmur. No rubs, or gallops. PMI non-displaced. Carotids: no carotid bruits. No bradycardia or tachycardia. DP pulses 2+ bilaterally. GI: soft, non-distended, normal active bowel sounds. No hepatosplenomegaly. Mild tenderness in the right upper quadrant. INTEGUMENT: Clean, dry, and intact. No rashes. No lesions. MUSCULOSKELETAL: Moving all extremities. No cyanosis. Clubbing. Edema: none bilaterally. NEUROLOGICAL: Cranial nerves 2-12 grossly intact. Motor 4/5 throughout. Reflexes : 2+ bilaterally. Babinski: toes downgoing bilaterally. Intact Finger to nose. Sensory grossly intact to light touch. Intact rapid alternating movements bilaterally. No pronator drift. PSYCHIATRIC: Fully oriented. Normal and appropriate affect. LYMPHATIC: No cervical lymphadenopathy. No supraclavicular lymphadenopathy. - Lab Results Laboratory Results - last 24 hr 03/12/16 03/12/16 03/12/16 21:00 21:00 21:00 WBC 5.4 RBC 3.42 L Hgb 9.9 L Hct 30.1 L MCV 88 MCH 29.1 MCHC 33.1 RDW 13.3 Plt Count 107 L MPV 11.4 H Neut % (Auto) 53.4 Lymph % (Auto) 32.1 Hood % (Auto) 10.9 H Eos % (Auto) 3.0 Baso % (Auto) 0.6 Absolute Neuts (auto) 2.86 Absolute Lymphs (auto) 1.73 Puncture Site pH pCO2 pO2 HCO3 Total CO2 Base Excess FiO2 % Specimen Drawn By Sodium 145 Potassium 2.9 L Chloride 103 Carbon Dioxide 31 Anion Gap 14 BUN 16 Creatinine 0.70 Estimated GFR (MDRD) > 60 Glucose 147 H Calculated Osmolality 283 Lactic Acid 1.9 Calcium 8.8 Corrected Calcium 9.2 Magnesium Total Bilirubin 0.4 AST 29 ALT 33 Alkaline Phosphatase 105 Xgl-P-Nkzrjxanubb Pept 604 Total Protein 7.2 Albumin 3.6 Urine Color Urine Clarity Urine pH Ur Specific [place] Urine Protein Urine Glucose (UA) Urine Ketones Urine Occult Blood Urine Nitrite Urine Bilirubin Urine Urobilinogen Ur Leukocyte Esterase Urine RBC Urine WBC Ur Epithelial Cells Urine Bacteria Hyaline Casts Urine Mucus 03/12/16 03/12/16 21:39 21:47 WBC RBC Hgb Hct MCV MCH MCHC RDW Plt Count MPV Neut % (Auto) Lymph % (Auto) Hood % (Auto) Eos % (Auto) Baso % (Auto) Absolute Neuts (auto) Absolute Lymphs (auto) Puncture Site Right radial pH 7.470 H pCO2 44.0 pO2 68.0 L HCO3 32.0 H Total CO2 33.4 H Base Excess 7.4 H FiO2 % 2.5 lpm nc Specimen Drawn By Kaytr Sodium Potassium Chloride Carbon Dioxide Anion Gap BUN Creatinine Estimated GFR (MDRD) Glucose Calculated Osmolality Lactic Acid Calcium Corrected Calcium Magnesium Total Bilirubin AST ALT Alkaline Phosphatase Web-C-Oljmykhzhyi Pept Total Protein Albumin Urine Color Yellow Urine Clarity Sl cldy Urine pH 5.0 Ur Specific [place] 1.010 Urine Protein 1+ H Urine Glucose (UA) Neg Urine Ketones Neg Urine Occult Blood Neg Urine Nitrite Neg Urine Bilirubin Neg Urine Urobilinogen <2.0 Ur Leukocyte Esterase 2+ H Urine RBC 2-5 Urine WBC 10-20 H Ur Epithelial Cells 3+ Urine Bacteria 2+ H Hyaline Casts 10-20 H Urine Mucus Occ - Diagnostic Findings EK bpm. Normal sinus rhythm. Nonspecific ST abnormality. Reviewed EKG personally. Chest x-ray, viewed personally: EXAM: CHEST 2 VIEW COMPARISON: Chest radiograph 03/08/2016 FINDINGS: Stable cardiac and mediastinal contours. Bibasilar linear opacities. No large area of pulmonary consolidation. Apical emphysematous change. No pleural effusion or pneumothorax. IMPRESSION: Linear opacities bilateral lung bases favored to represent atelectasis. - Assessment (1) COPD exacerbation J44.1 - CHRONIC OBSTRUCTIVE PULMONARY DISEASE W (ACUTE) EXACERBATION Acute Present on Admission: Yes COPD exacerbation, severe. Plan: Nebs of Duoneb q 6 hours scheduled and albuterol q 2 hours prn. Sputum culture ordered. IV cefepime, due to failed outpatient management and numerous allergies. IV methylprednisolone. Continuous oxygen support. Keep sats below 95% due to COPD. (2) Acute cystitis without hematuria N30.00 - ACUTE CYSTITIS WITHOUT HEMATURIA Acute Present on Admission: Yes Plan: Cultures ordered. IV cefepime due to multiple allergies. (3) Influenza J11.1 - FLU DUE TO UNIDENTIFIED INFLUENZA VIRUS W OTH RESP MANIFEST Acute Present on Admission: Yes Complete course of Tamiflu. (4) Hypokalemia E87.6 - HYPOKALEMIA Acute Present on Admission: Yes Replace potassium with KCl. Check magnesium level and replace as needed. - Plan (1) COPD exacerbation J44.1 - CHRONIC OBSTRUCTIVE PULMONARY DISEASE W (ACUTE) EXACERBATION Acute Present on Admission: Yes COPD exacerbation, severe. Plan: Nebs of Duoneb q 6 hours scheduled and albuterol q 2 hours prn. Sputum culture ordered. IV cefepime, due to failed outpatient management and numerous allergies. IV methylprednisolone. Continuous oxygen support. Keep sats below 95% due to COPD. (2) Acute cystitis without hematuria N30.00 - ACUTE CYSTITIS WITHOUT HEMATURIA Acute Present on Admission: Yes Plan: Cultures ordered. IV cefepime due to multiple allergies. (3) Influenza J11.1 - FLU DUE TO UNIDENTIFIED INFLUENZA VIRUS W OTH RESP MANIFEST Acute Present on Admission: Yes Complete course of Tamiflu. (4) Hypokalemia E87.6 - HYPOKALEMIA Acute Present on Admission: Yes Replace potassium with KCl. Check magnesium level and replace as needed.
[2016-03-13] MEDS ORDERED: ALBUTEROL 0.083% 3 ML NEB NEB PRN (00:21)
[2016-03-13] MEDS ORDERED: BENZONATATE 100 MG PERLES PO PRN (01:16)
[2016-03-13] MEDS ORDERED: SIMETHICONE 80 MG TAB PO PRN (01:16)
[2016-03-13] MEDS ORDERED: SENNA CONCENTRATE TAB PO PRN (01:16)
[2016-03-13] MEDS ORDERED: BISACODYL 5 MG TAB PO PRN (01:16)
[2016-03-13] MEDS ORDERED: Docusate Sodium 100 MG CAP PO PRN (01:16)
[2016-03-13] MEDS ORDERED: GLUCAGON 1 MG VIAL SQ PRN (01:16)
[2016-03-13] MEDS ORDERED: ACETAMINOPHEN 325 MG SUPP PR PRN (01:16)
[2016-03-13] MEDS ORDERED: DEXTROSE 25 GM/50 ML PFS IV PRN (01:16)
[2016-03-13] MEDS ORDERED: PROMETHAZINE 25 MG/ML VIAL IV PRN (01:16)
[2016-03-13] MEDS ORDERED: GUAIFEN 100 MG-DEXTROMETH 10 MG PER 5 ML PO PRN (01:16)
[2016-03-13] MEDS ORDERED: ONDANSETRON HCL 4 MG/2 ML VIAL IV PRN (01:16)
[2016-03-13] MEDS ORDERED: GLUCOSE (ORAL GEL) 15 GM TUBE PO PRN (01:16)
[2016-03-13] MEDS: KCl 10 mEq/100 ml Premix (Run) 10 MEQ/100 ML RTU IV SCH (01:17)
[2016-03-13] MEDS: Albuterol/Ipratropium Neb 3 ML NEB NEB SCH ×4 (01:26→19:56)
[2016-03-13] MEDS ORDERED: Non-Formulary Medication ITEM (Oxycodone Hcl [Oxycodone Immediate Release] 10 MG) PO PRN (01:26)
[2016-03-13] MEDS ORDERED: POTASSIUM CHLORIDE 20 MEQ TAB PO ONE (02:00)
[2016-03-13] MEDS: OSELTAMIVIR PHOSPHATE 75 MG CAP PO SCH ×3 (02:04→21:17)
[2016-03-13] MEDS: CARVEDILOL 6.25 MG TAB PO SCH ×3 (02:04→21:16)
[2016-03-13] MEDS: ACETAMINOPHEN 325 MG/TAB TABLET PO PRN (02:51)
[2016-03-13] MEDS: Magnesium Sulfate 2 gm/D5W 2 GM/50 ML RTU IV SCH ×2 (02:51→05:00)
[2016-03-13] MEDS ORDERED: hydrALAZINE 20 MG/ML VIAL IV PRN (02:52)
[2016-03-13] MEDS: METHYLPREDNISOLONE 125 MG/2 ML VIAL IV SCH ×3 (05:01→21:17)
[2016-03-13] MEDS: REGULAR INSULIN 100 UNITS/ML - 3 ML VIAL SQ SCH ×5 (05:59→23:30)
[2016-03-13] MEDS: PANTOPRAZOLE 40 MG TAB PO SCH ×2 (05:59→17:02)
[2016-03-13] MEDS ORDERED: Non-Formulary Medication ITEM (Ferrous Sulfate [Iron] 325 MG) PO SCH (06:00)
[2016-03-13 06:01] LABS: MPV 11.2 fL (7.4-10.4)
[2016-03-13 06:16] LABS: BLOOD UREA NITROGEN 19 MG/DL (7-17); CALCIUM 9.1 MG/DL (8.4-10.2); CALCULATED OSMOLALITY 288 MOs/Kg (270-290); CHLORIDE 102 mEq/L (98-107); GLUCOSE 365 mg/dL (70-99); SODIUM LEVEL 141 mEq/L (137-146)
[2016-03-13] MEDS: SUCRALFATE 1 GM TAB PO SCH ×4 (06:25→21:16)
[2016-03-13] MEDS: CEFEPIME HYDROCHLORIDE 2 GM in D5W 100 ML IV SCH ×3 (07:28→21:22)
[2016-03-13] MEDS: GABAPENTIN 800 MG TAB PO SCH ×4 (07:30→21:15)
[2016-03-13] MEDS: FERROUS SULFATE 324 MG TAB PO SCH ×3 (07:30→17:01)
[2016-03-13] MEDS: LACTULOSE 20 GM/30 ML ORAL SOLN PO SCH ×2 (07:31→21:16)
[2016-03-13] MEDS: FENOFIBRATE 145 MG TAB PO SCH (07:31)
[2016-03-13] MEDS: FUROSEMIDE 40 MG TAB PO SCH (07:32)
[2016-03-13] MEDS: NITROGLYCERIN 0.4 MG PATCH TOP SCH (07:32)
[2016-03-13] MEDS: LISINOPRIL 10 MG TAB PO SCH (07:33)
[2016-03-13] MEDS: GLARGINE INSULIN (LANTUS) 100 UNITS/ML PEN SQ SCH ×2 (07:33→23:51)
[2016-03-13] MEDS ORDERED: INSULIN GLARGINE HUM REC ANLOG 35 UNIT SQ SCH (09:00)
[2016-03-13] MEDS ORDERED: [UNRECOGNIZED DRUG - OTHER] SQ SCH (09:00)
--- NOTE | 2016-03-13 10:25 | GENMEDPROG ---
Chief Complaint: COPD exacerbation Subjective Note: Sitting up at the bedside this morning on 3 L nasal cannula oxygen, she was 2 L at home. She feels much better than at the time of admission. Still has a cough, not productive in denies any chest pain or fevers. - Physical Examination Vital Signs and I&O: Last Vital Signs Temp 98.4 F 03/13/16 04:58 Pulse 72 03/13/16 04:58 Resp 18 03/13/16 04:58 BP 172/70 03/13/16 04:58 Pulse Ox 97 03/13/16 07:40 Oxygen Pulse Oxygen Saturation 97 O2 Device Nasal Cannula Oxygen Flow Rate 3 Fraction of Inspired Oxygen ( 40 FIO2) Intake & Output 03/11/16 03/12/16 03/13/16 03/14/16 06:59 06:59 06:59 06:59 Intake Total 344 240 Output Total 500 200 Balance -156 40 General: Alert, Oriented x3, No acute distress, Well appearing, Well nourished, Other (Normal and appropriate affect) HEENT: EOMI (Sclera white) Neck: Normal Trachea alignment, Normal inspection Respiratory: Accessory Muscle Use, Rales, Rhonchi, Tachypnea Cardiovascular: Regular rate, Murmurs (She has a 4/6 holosystolic murmur) GI: Normal bowel sounds, Soft, Non tender (non distended) Extremities/Musculoskeletal: Other (Normal Tone). negative: Edema, Cyanosis Skin: No rashes, No significant lesion Neurological: Cranial Nerves (II-XII intact) Psych/Mental Status: Normal Affect (Fully oriented, [place] and appropriate affect ) Lab/DI/Studies Reviewed: Laboratory Tests 03/13/16 03/13/16 05:30 05:30 WBC 2.7 L Hgb 9.6 L Hct 29.0 L BUN 19 H Creatinine 0.70 - Assessment (1) COPD exacerbation Acute J44.1 - CHRONIC OBSTRUCTIVE PULMONARY DISEASE W (ACUTE) EXACERBATION Comment/Plan: COPD exacerbation, severe. Plan: Nebs of Duoneb q 6 hours scheduled and albuterol q 2 hours prn. Sputum culture ordered. IV cefepime, due to failed outpatient management and numerous allergies. IV methylprednisolone. Continuous oxygen support. Keep sats below 95% due to COPD. (2) Acute cystitis without hematuria Acute N30.00 - ACUTE CYSTITIS WITHOUT HEMATURIA Comment/Plan: Plan: Cultures ordered, await results and tailor antibiotics as appropriate. IV cefepime due to multiple allergies. (3) Hypokalemia Acute E87.6 - HYPOKALEMIA Comment/Plan: Replace potassium with KCl. Check magnesium level and replace as needed. (4) Influenza Acute J11.1 - FLU DUE TO UNIDENTIFIED INFLUENZA VIRUS W OTH RESP MANIFEST Comment/Plan: Complete course of Tamiflu. 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 Accu-Cheks and sliding scale insulin. (6) Chronic diastolic (congestive) heart failure Chronic I50.32 - CHRONIC DIASTOLIC (CONGESTIVE) HEART FAILURE Comment/Plan: Restrict fluids, treat pulmonary disease, HTN. No evidence of acute exacerbation of her heart failure at this time. - Plan Overall it seems that she has improved dramatically, continue to wean oxygen as able, she is nearly at her baseline oxygen level. Continue treat empirically for urinary tract infection, she can be discharged home hopefully on oral antibiotics, once her urine culture is completely delineated.
[2016-03-13] MEDS: OXYCODONE HCL 5 MG TABLET PO PRN ×2 (10:33→21:42)
[2016-03-13] MEDS: ENOXAPARIN 40 MG/0.4 ML PFS SQ SCH (17:02)
[2016-03-13] MEDS: SIMVASTATIN 20 MG TAB PO SCH (17:02)
[2016-03-13] MEDS ORDERED: FENOFIBRATE 160 MG PO SCH (21:00)
[2016-03-13] MEDS: MONTELUKAST SODIUM 10 MG TAB PO SCH (21:16)
[2016-03-14] MEDS: Albuterol/Ipratropium Neb 3 ML NEB NEB SCH ×4 (02:00→19:07)
[2016-03-14] MEDS ORDERED: NS 500 ML IV ONE (03:01)
[2016-03-14] MEDS: CEFEPIME HYDROCHLORIDE 2 GM in D5W 100 ML IV SCH ×3 (05:26→21:02)
[2016-03-14] MEDS: METHYLPREDNISOLONE 125 MG/2 ML VIAL IV SCH ×2 (05:28→13:51)
[2016-03-14] MEDS: PANTOPRAZOLE 40 MG TAB PO SCH ×2 (05:28→17:13)
[2016-03-14] MEDS: SUCRALFATE 1 GM TAB PO SCH ×4 (05:31→20:21)
[2016-03-14] MEDS: REGULAR INSULIN 100 UNITS/ML - 3 ML VIAL SQ SCH ×5 (06:41→20:19)
[2016-03-14] MEDS: FENOFIBRATE 145 MG TAB PO SCH (09:00)
[2016-03-14] MEDS: FERROUS SULFATE 324 MG TAB PO SCH ×3 (09:00→17:13)
[2016-03-14] MEDS: GABAPENTIN 800 MG TAB PO SCH ×4 (09:00→21:02)
[2016-03-14] MEDS: LACTULOSE 20 GM/30 ML ORAL SOLN PO SCH ×2 (09:01→20:21)
[2016-03-14] MEDS: FUROSEMIDE 40 MG TAB PO SCH (09:01)
[2016-03-14] MEDS: CARVEDILOL 6.25 MG TAB PO SCH ×2 (09:01→20:19)
[2016-03-14] MEDS: GLARGINE INSULIN (LANTUS) 100 UNITS/ML PEN SQ SCH ×2 (09:02→20:29)
[2016-03-14] MEDS: LISINOPRIL 10 MG TAB PO SCH (09:03)
[2016-03-14] MEDS: NITROGLYCERIN 0.4 MG PATCH TOP SCH (09:03)
[2016-03-14] MEDS: OSELTAMIVIR PHOSPHATE 75 MG CAP PO SCH ×2 (09:03→20:19)
[2016-03-14] MEDS: OXYCODONE HCL 5 MG TABLET PO PRN ×2 (11:38→20:29)
--- NOTE | 2016-03-14 16:39 | GENMEDPROG ---
Chief Complaint: COPD exacerbation Subjective Note: She is doing quite well, but concerned about her hyperglycemia. Notes Reviewed: Yes: Events from last night noted and discussed with Clinical Staff Current Medication List: Reviewed Currently: Reports: Cough, SOB DVT Prophylaxis: Yes - Physical Examination Vital Signs and I&O: Last Vital Signs Temp 98.7 F 03/14/16 14:00 Pulse 66 03/14/16 14:00 Resp 18 03/14/16 14:00 BP 125/70 03/14/16 14:00 Pulse Ox 95 03/14/16 14:00 Oxygen Pulse Oxygen Saturation 95 O2 Device Nasal Cannula Oxygen Flow Rate 3 Fraction of Inspired Oxygen ( 40 FIO2) Intake & Output 03/12/16 03/13/16 03/14/16 03/15/16 06:59 06:59 06:59 06:59 Intake Total 344 1874 400 Output Total 500 3200 550 Balance -156 -5416 -150 Patient's weight 85.23 kg General: Alert, Oriented x3, No acute distress, Well appearing, Well nourished, Other (Normal and appropriate affect) HEENT: EOMI (Sclera white) Neck: Normal Trachea alignment, Normal inspection Respiratory: Diminished, Rhonchi Cardiovascular: Regular rate, Murmurs (She has a 4/6 holosystolic murmur) GI: Normal bowel sounds, Soft, Non tender (non distended) Extremities/Musculoskeletal: Other (Normal Tone). negative: Edema, Cyanosis Skin: No rashes, No significant lesion Neurological: Cranial Nerves (II-XII intact) Psych/Mental Status: Normal Affect (Fully oriented, Norla and appropriate affect ) Lab/DI/Studies Reviewed: Laboratory Tests 03/13/16 03/13/16 03/14/16 05:30 05:30 13:36 WBC 2.7 L Hgb 9.6 L Potassium 4.1 D BUN 19 H Creatinine 0.70 POC Capillary Glucose 470 H 03/14/16 16:10 WBC Hgb Potassium BUN Creatinine POC Capillary Glucose 388 H - Assessment (1) COPD exacerbation Acute J44.1 - CHRONIC OBSTRUCTIVE PULMONARY DISEASE W (ACUTE) EXACERBATION Comment/Plan: COPD exacerbation, severe. Plan: Nebs of Duoneb q 6 hours scheduled and albuterol q 2 hours prn. Sputum culture ordered. IV cefepime, due to failed outpatient management and numerous allergies. IV methylprednisolone, which will be weaned to p.o. prednisone today.. Continuous oxygen support. Keep sats below 95% due to COPD. (2) Acute cystitis without hematuria Acute N30.00 - ACUTE CYSTITIS WITHOUT HEMATURIA Comment/Plan: Plan: Cultures ordered. IV cefepime due to multiple allergies. Preliminary urine cultures pending. Awaiting culture and sensitivities. (3) Hypokalemia Acute E87.6 - HYPOKALEMIA Comment/Plan: Replace potassium with KCl. Check magnesium level and replace as needed. (4) Influenza Acute J11.1 - FLU DUE TO UNIDENTIFIED INFLUENZA VIRUS W OTH RESP MANIFEST Comment/Plan: Complete course of Tamiflu. 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 Accu-Cheks and sliding scale insulin. (6) Chronic diastolic (congestive) heart failure Chronic I50.32 - CHRONIC DIASTOLIC (CONGESTIVE) HEART FAILURE Comment/Plan: Restrict fluids, treat pulmonary disease, HTN. No evidence of acute exacerbation of her heart failure at this time. - Plan Patient is much improved, consideration was given to discharging home today. But her blood sugars are quite high, she got slightly dyspneic with exertion, and we are still awaiting final urine cultures. Once her back, she can likely discharge home in the morning. Total Time: 42
[2016-03-14] MEDS ORDERED: Vaccine Screening Complete SCH (17:00)
[2016-03-14] MEDS: ENOXAPARIN 40 MG/0.4 ML PFS SQ SCH (17:13)
[2016-03-14] MEDS: SIMVASTATIN 20 MG TAB PO SCH ×2 (17:13→17:14)
[2016-03-14] MEDS: TEMAZEPAM 15 MG CAP PO PRN (20:19)
[2016-03-14] MEDS: MONTELUKAST SODIUM 10 MG TAB PO SCH (20:19)
[2016-03-15] MEDS: Albuterol/Ipratropium Neb 3 ML NEB NEB SCH ×4 (00:53→19:14)
[2016-03-15] MEDS: REGULAR INSULIN 100 UNITS/ML - 3 ML VIAL SQ SCH ×5 (01:20→21:48)
[2016-03-15] MEDS: CEFEPIME HYDROCHLORIDE 2 GM in D5W 100 ML IV SCH ×2 (05:41→13:34)
[2016-03-15] MEDS: PANTOPRAZOLE 40 MG TAB PO SCH ×2 (05:43→16:53)
[2016-03-15] MEDS: SUCRALFATE 1 GM TAB PO SCH ×4 (05:43→21:48)
[2016-03-15] MEDS: GABAPENTIN 800 MG TAB PO SCH ×4 (05:59→21:47)
[2016-03-15 07:19] LABS: MPV 10.6 fL (7.4-10.4)
[2016-03-15 07:46] LABS: BLOOD UREA NITROGEN 31 MG/DL (7-17); CALCIUM 9.3 MG/DL (8.4-10.2); CALCULATED OSMOLALITY 274 MOs/Kg (270-290); CHLORIDE 95 mEq/L (98-107); GLUCOSE 153 mg/dL (70-99); SODIUM LEVEL 137 mEq/L (137-146)
[2016-03-15] MEDS: FERROUS SULFATE 324 MG TAB PO SCH ×3 (09:15→16:51)
[2016-03-15] MEDS: FENOFIBRATE 145 MG TAB PO SCH (09:15)
[2016-03-15] MEDS: PREDNISONE 20 MG TAB PO SCH (09:15)
[2016-03-15] MEDS: LACTULOSE 20 GM/30 ML ORAL SOLN PO SCH ×2 (09:16→21:47)
[2016-03-15] MEDS: CARVEDILOL 6.25 MG TAB PO SCH ×2 (09:16→21:49)
[2016-03-15] MEDS: GLARGINE INSULIN (LANTUS) 100 UNITS/ML PEN SQ SCH ×2 (09:16→21:47)
[2016-03-15] MEDS: FUROSEMIDE 40 MG TAB PO SCH (09:16)
[2016-03-15] MEDS: OSELTAMIVIR PHOSPHATE 75 MG CAP PO SCH ×2 (09:17→21:48)
[2016-03-15] MEDS: NITROGLYCERIN 0.4 MG PATCH TOP SCH (09:17)
[2016-03-15] MEDS: LISINOPRIL 10 MG TAB PO SCH (09:18)
[2016-03-15] MEDS: OXYCODONE HCL 5 MG TABLET PO PRN ×2 (15:56→21:58)
--- NOTE | 2016-03-15 16:11 | GENMEDPROG ---
Chief Complaint: Patient in chair responsive follows commands. Overall breathing better but still coughing producing fair amount thick sputum no hemoptysis. Generally weak tired and fatigued Notes Reviewed: Yes: Events from last night noted and discussed with Clinical Staff Current Medication List: Reviewed Currently: Reports: Cough, Wheezing, REYES, SOB, Sputum, Reflux Sx DVT Prophylaxis: Yes - Physical Examination Vital Signs and I&O: Last Vital Signs Temp 98.9 F 03/15/16 14:00 Pulse 66 03/15/16 14:00 Resp 20 03/15/16 14:00 BP 121/62 03/15/16 14:00 Pulse Ox 95 03/15/16 14:00 Oxygen Pulse Oxygen Saturation 95 O2 Device Nasal Cannula Oxygen Flow Rate 2 Fraction of Inspired Oxygen ( 40 FIO2) Intake & Output 03/12/16 03/13/16 03/14/16 03/15/16 23:59 23:59 23:59 23:59 Intake Total 1208 2366 1328 Output Total 3000 3550 3650 Balance -1820 -6056 -9735 Patient's weight 85.23 kg 85.36 kg General: Alert, Oriented x3, No acute distress, Well appearing, Well nourished, Other (Normal and appropriate affect) HEENT: Normal, PERRLA, EOMI (Sclera white), Anicteric Sclera Neck: Normal Trachea alignment, Normal inspection, Limited range of motion Lymphatics: Normal Respiratory: Diminished, Rhonchi Cardiovascular: Regular rate, Normal S1, Normal S2, Murmurs (She has a 4/6 holosystolic murmur) GI: Normal bowel sounds, Soft, Non tender (non distended) Extremities/Musculoskeletal: Normal pulses, DJD, Other (Normal Tone). negative : Edema, Cyanosis Skin: Warm,Dry and Intact, No rashes, No breakdown, No significant lesion Neurological: Normal speech, Normal tone, Cranial nerves 3-12 NL, Cranial Nerves (II-XII intact) Psych/Mental Status: Normal Affect (Fully oriented, Norla and appropriate affect ), Anxious Lab/DI/Studies Reviewed: Allergies Penicillins Allergy (Intermediate, Verified 03/12/16 20:59) Hives* ciprofloxacin [From Cipro] Allergy (Unknown, Verified 03/12/16 20:59) Rash-Generalized ciprofloxacin HCl [From Cipro] Allergy (Unknown, Verified 03/12/16 20:59) Rash-Generalized amoxicillin [Amoxicillin] Allergy (Verified 03/12/16 20:59) Rash-Generalized doxycycline Allergy (Verified 03/12/16 20:59) Rash-Generalized Microbiology 03/12/16 21:47 Urine - Clean Catch - Midstream Urine Culture - Final Enterococcus faecalis Last Vital Signs Temp 98.9 F 03/15/16 14:00 Pulse 66 03/15/16 14:00 Resp 20 03/15/16 14:00 BP 121/62 03/15/16 14:00 Pulse Ox 95 03/15/16 14:00 03/15/16 06:39 03/15/16 06:39 Abnormal Lab Results 03/14/16 03/14/16 03/14/16 16:10 20:03 20:04 RBC Hgb Hct Plt Count MPV Chloride BUN Glucose POC Capillary Glucose 388 H 426 H 461 H 03/14/16 03/15/16 03/15/16 20:15 00:35 05:03 RBC Hgb Hct Plt Count MPV Chloride BUN Glucose 431 H POC Capillary Glucose 334 H 180 H 03/15/16 03/15/16 03/15/16 06:39 06:39 11:11 RBC 3.31 L Hgb 9.7 L Hct 28.8 L Plt Count 96 L MPV 10.6 H Chloride 95 L BUN 31 H Glucose 153 H POC Capillary Glucose 169 H - Assessment (1) Acute and chronic respiratory failure Acute J96.20 - ACUTE AND CHR RESP FAILURE, UNSP W HYPOXIA OR HYPERCAPNIA Qualifiers: Respiratory failure complication: hypoxia Qualified Code(s): J96.21 - Acute and chronic respiratory failure with hypoxia Comment/Plan: Continue O2 nebs and pulmonary toilet. Monitor pulmonary status. (2) UTI (urinary tract infection) Acute N39.0 - URINARY TRACT INFECTION, SITE NOT SPECIFIED Qualifiers: Urinary tract infection type: site unspecified Hematuria presence: without hematuria Qualified Code(s): N39.0 - Urinary tract infection, site not specified Comment/Plan: Urine culture grows Enterococcus. Adjust antibiotics today (3) COPD exacerbation Acute J44.1 - CHRONIC OBSTRUCTIVE PULMONARY DISEASE W (ACUTE) EXACERBATION Comment/Plan: Continue nebulized bronchodilators mucolytics and steroids. (4) Anemia Acute D64.9 - ANEMIA, UNSPECIFIED Qualifiers: Anemia type: unspecified type Qualified Code(s): D64.9 - Anemia, unspecified Comment/Plan: Monitor counts (5) GERD (gastroesophageal reflux disease) Acute K21.9 - GASTRO-ESOPHAGEAL REFLUX DISEASE WITHOUT ESOPHAGITIS Qualifiers: Esophagitis presence: without esophagitis Qualified Code(s): K21.9 - Gastro -esophageal reflux disease without esophagitis Comment/Plan: on ppi (6) Hypertension Chronic I10 - ESSENTIAL (PRIMARY) HYPERTENSION Qualifiers: Hypertension type: essential hypertension Comment/Plan: Continue medications and monitor Case Care Discussed with: Patient, Nursing Staff, Respiratory Therapy, Associate Application Developer Education/Counseling Given To: Patient Education/Counseling Given Regarding: Diagnosis, Treatment, Prognosis, Follow Up Code: 55290 (12+)
[2016-03-15] MEDS: ENOXAPARIN 40 MG/0.4 ML PFS SQ SCH (16:51)
[2016-03-15] MEDS: SIMVASTATIN 20 MG TAB PO SCH (16:53)
[2016-03-15] MEDS: AZITHROMYCIN 500 MG in D5W 250 ML IV SCH (17:25)
[2016-03-15] MEDS: MONTELUKAST SODIUM 10 MG TAB PO SCH (21:48)
[2016-03-15] MEDS: ACETAMINOPHEN 325 MG/TAB TABLET PO PRN (21:58)
[2016-03-15] MEDS: TEMAZEPAM 15 MG CAP PO PRN (21:59)
[2016-03-16] MEDS: REGULAR INSULIN 100 UNITS/ML - 3 ML VIAL SQ SCH ×6 (00:40→23:07)
[2016-03-16] MEDS: Albuterol/Ipratropium Neb 3 ML NEB NEB SCH ×4 (01:32→20:40)
[2016-03-16] MEDS: SUCRALFATE 1 GM TAB PO SCH ×4 (05:45→20:09)
[2016-03-16] MEDS: PANTOPRAZOLE 40 MG TAB PO SCH ×2 (05:46→16:36)
[2016-03-16 07:17] LABS: MPV 11.2 fL (7.4-10.4)
[2016-03-16 07:34] LABS: BLOOD UREA NITROGEN 33 MG/DL (7-17); CALCIUM 9.4 MG/DL (8.4-10.2); CALCULATED OSMOLALITY 277 MOs/Kg (270-290); CHLORIDE 94 mEq/L (98-107); GLUCOSE 80 mg/dL (70-99); SODIUM LEVEL 141 mEq/L (137-146)
[2016-03-16] MEDS: GABAPENTIN 800 MG TAB PO SCH ×4 (08:35→20:09)
[2016-03-16] MEDS: FERROUS SULFATE 324 MG TAB PO SCH ×3 (08:35→16:37)
[2016-03-16] MEDS: PREDNISONE 20 MG TAB PO SCH (08:36)
[2016-03-16] MEDS: FENOFIBRATE 145 MG TAB PO SCH (08:36)
[2016-03-16] MEDS: LACTULOSE 20 GM/30 ML ORAL SOLN PO SCH ×2 (08:37→20:09)
[2016-03-16] MEDS: FUROSEMIDE 40 MG TAB PO SCH (08:37)
[2016-03-16] MEDS: GLARGINE INSULIN (LANTUS) 100 UNITS/ML PEN SQ SCH ×2 (08:37→20:09)
[2016-03-16] MEDS: OSELTAMIVIR PHOSPHATE 75 MG CAP PO SCH ×2 (08:43→20:09)
[2016-03-16] MEDS: NITROGLYCERIN 0.4 MG PATCH TOP SCH (08:43)
[2016-03-16] MEDS: LISINOPRIL 10 MG TAB PO SCH (08:44)
[2016-03-16] MEDS: CARVEDILOL 6.25 MG TAB PO SCH ×2 (08:44→20:54)
[2016-03-16] MEDS: OXYCODONE HCL 5 MG TABLET PO PRN ×2 (11:49→20:17)
[2016-03-16] MEDS: AZITHROMYCIN 500 MG in D5W 250 ML IV SCH (16:35)
[2016-03-16] MEDS: ENOXAPARIN 40 MG/0.4 ML PFS SQ SCH (16:36)
[2016-03-16] MEDS: SIMVASTATIN 20 MG TAB PO SCH (16:37)
--- NOTE | 2016-03-16 18:02 | GENMEDPROG ---
Subjective Note: Patient in chair responsive follows commands. Still coughing producing fair amount thick sputum no hemoptysis overall breathing much improved. Tolerating diet. Notes Reviewed: Yes: Events from last night noted and discussed with Clinical Staff Current Medication List: Reviewed Currently: Reports: Cough, Wheezing, REYES, SOB, Sputum, Reflux Sx DVT Prophylaxis: Yes - Physical Examination Vital Signs and I&O: Last Vital Signs Temp 99 F 03/16/16 14:15 Pulse 68 03/16/16 14:15 Resp 20 03/16/16 14:15 BP 117/46 L 03/16/16 14:15 Pulse Ox 94 03/16/16 14:15 Oxygen Pulse Oxygen Saturation 94 O2 Device Nasal Cannula Oxygen Flow Rate 2 Fraction of Inspired Oxygen ( 40 FIO2) Intake & Output 03/13/16 03/14/16 03/15/16 03/16/16 23:59 23:59 23:59 23:59 Intake Total 1208 2366 1568 360 Output Total 3000 3550 4150 800 Balance -1792 -1184 -2582 -440 Patient's weight 85.23 kg 85.36 kg 86.835 kg General: Alert, Oriented x3, No acute distress, Well appearing, Well nourished, Other (Normal and appropriate affect) HEENT: Normal, PERRLA, EOMI (Sclera white), Anicteric Sclera Neck: Normal Trachea alignment, Normal inspection, Limited range of motion Lymphatics: Normal Respiratory: Diminished, Rhonchi Cardiovascular: Regular rate, Normal S1, Normal S2, Murmurs (She has a 4/6 holosystolic murmur) GI: Normal bowel sounds, Soft, Non tender (non distended) Extremities/Musculoskeletal: Normal pulses, DJD, Other (Normal Tone). negative : Edema, Cyanosis Skin: Warm,Dry and Intact, No rashes, No breakdown, No significant lesion Neurological: Normal speech, Normal tone, Cranial nerves 3-12 NL, Cranial Nerves (II-XII intact) Psych/Mental Status: Normal Affect (Fully oriented, Norla and appropriate affect ), Anxious - Assessment (1) Acute and chronic respiratory failure Acute J96.20 - ACUTE AND CHR RESP FAILURE, UNSP W HYPOXIA OR HYPERCAPNIA Qualifiers: Respiratory failure complication: hypoxia Qualified Code(s): J96.21 - Acute and chronic respiratory failure with hypoxia Comment/Plan: Continue O2 nebs and pulmonary toilet. Monitor pulmonary status. (2) UTI (urinary tract infection) Acute N39.0 - URINARY TRACT INFECTION, SITE NOT SPECIFIED Qualifiers: Urinary tract infection type: site unspecified Hematuria presence: without hematuria Qualified Code(s): N39.0 - Urinary tract infection, site not specified Comment/Plan: Urine culture grows Enterococcus. Adjust antibiotics today (3) COPD exacerbation Acute J44.1 - CHRONIC OBSTRUCTIVE PULMONARY DISEASE W (ACUTE) EXACERBATION Comment/Plan: Continue nebulized bronchodilators mucolytics and steroids. (4) Anemia Acute D64.9 - ANEMIA, UNSPECIFIED Qualifiers: Anemia type: unspecified type Qualified Code(s): D64.9 - Anemia, unspecified Comment/Plan: Monitor counts (5) GERD (gastroesophageal reflux disease) Acute K21.9 - GASTRO-ESOPHAGEAL REFLUX DISEASE WITHOUT ESOPHAGITIS Qualifiers: Esophagitis presence: without esophagitis Qualified Code(s): K21.9 - Gastro -esophageal reflux disease without esophagitis Comment/Plan: on ppi (6) Hypertension Chronic I10 - ESSENTIAL (PRIMARY) HYPERTENSION Qualifiers: Hypertension type: essential hypertension Comment/Plan: Continue medications and monitor Case Care Discussed with: Patient, Family, Nursing Staff, Neonatal Surgeon Education/Counseling Given To: Patient Education/Counseling Given Regarding: Diagnosis, Treatment, Prognosis, Follow Up Total Time: 45 min . Critical Care: No Code: 25767 (12+)
[2016-03-16] MEDS: MONTELUKAST SODIUM 10 MG TAB PO SCH (20:09)
[2016-03-16] MEDS: TEMAZEPAM 15 MG CAP PO PRN (22:06)
[2016-03-17] MEDS: Albuterol/Ipratropium Neb 3 ML NEB NEB SCH ×2 (02:49→08:36)
[2016-03-17] MEDS: SUCRALFATE 1 GM TAB PO SCH (06:17)
[2016-03-17] MEDS: REGULAR INSULIN 100 UNITS/ML - 3 ML VIAL SQ SCH (06:17)
[2016-03-17] MEDS: PANTOPRAZOLE 40 MG TAB PO SCH (06:17)
[2016-03-17] MEDS: ACETAMINOPHEN 325 MG/TAB TABLET PO PRN (06:19)
[2016-03-17 06:26] LABS: MPV 10.4 fL (7.4-10.4)
[2016-03-17 06:37] LABS: BLOOD UREA NITROGEN 22 MG/DL (7-17); CALCIUM 8.7 MG/DL (8.4-10.2); CALCULATED OSMOLALITY 273 MOs/Kg (270-290); CHLORIDE 96 mEq/L (98-107); GLUCOSE 125 mg/dL (70-99); SODIUM LEVEL 140 mEq/L (137-146)
[2016-03-17] MEDS ORDERED: POTASSIUM CHLORIDE 20 MEQ TAB PO ONE (08:10)
[2016-03-17] MEDS: LISINOPRIL 10 MG TAB PO SCH (08:28)
[2016-03-17] MEDS: OSELTAMIVIR PHOSPHATE 75 MG CAP PO SCH (08:28)
[2016-03-17] MEDS: FERROUS SULFATE 324 MG TAB PO SCH (08:28)
[2016-03-17] MEDS: GABAPENTIN 800 MG TAB PO SCH (08:28)
[2016-03-17] MEDS: FENOFIBRATE 145 MG TAB PO SCH (08:28)
[2016-03-17] MEDS: PREDNISONE 20 MG TAB PO SCH (08:28)
[2016-03-17] MEDS: LACTULOSE 20 GM/30 ML ORAL SOLN PO SCH (08:28)
[2016-03-17] MEDS: CARVEDILOL 6.25 MG TAB PO SCH (08:29)
[2016-03-17] MEDS: FUROSEMIDE 40 MG TAB PO SCH (08:29)
--- NOTE | 2016-03-17 08:36 | PCM.DCS92 ---
- Final/Secondary Discharge Diagnosis (1) Acute and chronic respiratory failure Resolved J96.20 - ACUTE AND CHR RESP FAILURE, UNSP W HYPOXIA OR HYPERCAPNIA hypoxia J96.21 - Acute and chronic respiratory failure with hypoxia Comment: Continue O2 nebs and pulmonary toilet. Monitor pulmonary status. (2) UTI (urinary tract infection) Acute N39.0 - URINARY TRACT INFECTION, SITE NOT SPECIFIED site unspecified without hematuria N39.0 - Urinary tract infection, site not specified Comment: Urine culture grows Enterococcus. Adjust antibiotics today. Continue and finish course of antibiotic (3) COPD exacerbation Resolved J44.1 - CHRONIC OBSTRUCTIVE PULMONARY DISEASE W (ACUTE) EXACERBATION Present on Admission: Yes Comment: Continue nebulized bronchodilators mucolytics and steroids. (4) Anemia Chronic D64.9 - ANEMIA, UNSPECIFIED Present on Admission: Yes unspecified type D64.9 - Anemia, unspecified Comment: Monitor counts (5) GERD (gastroesophageal reflux disease) Chronic K21.9 - GASTRO-ESOPHAGEAL REFLUX DISEASE WITHOUT ESOPHAGITIS without esophagitis K21.9 - Gastro-esophageal reflux disease without esophagitis Comment: on ppi (6) Hypertension Chronic I10 - ESSENTIAL (PRIMARY) HYPERTENSION essential hypertension Comment: Continue medications and monitor (7) Diabetes mellitus type 2 with complications Chronic E11.8 - TYPE 2 DIABETES MELLITUS WITH UNSPECIFIED COMPLICATIONS Present on Admission: Yes with terminal carman use E11.8 - Type 2 diabetes mellitus with unspecified complications; Z79.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 Accu-Cheks and sliding scale insulin. Discharge Disposition: Home Discharge Condition: Improved Cognitive Discharge Status: Unimpaired Fuctional Discharge Status: Walker Assistance Physician Follow up/Referrals: Rozina Recinos NP [Primary Care Provider] - One Week Home Medications / New Prescriptions: New Benzonatate [Tessalon] 100 mg PO TID PRN #20 capsule PRN Reason: Cough - First Option Albuterol/Ipratropium Neb [Duoneb] 3 ml NEB Q6H #120 nebu Levofloxacin [Levaquin] 750 mg PO DAILY #5 tablet Guaifenesin [Mucinex] 1,200 mg PO BID #20 tbmp.12hr Prednisone 10 mg PO DAILY #20 tab.ds.pk Continue Simvastatin [Zocor] 20 mg PO HS Pantoprazole Sodium [Protonix] 40 mg PO BID Fenofibrate [Lofibra] 160 mg PO HS Metformin HCl [Metformin HCl ER] 1,000 mg PO BID Glipizide 5 mg PO BID Insulin Aspart [Novolog] 0 units SQ .SSI Ferrous Sulfate [Iron] 325 mg PO TID Oxycodone HCl [Oxycodone Immediate Release] 10 mg PO Q8H PRN PRN Reason: Pain Montelukast Sodium [Singulair] 10 mg PO HS #30 tablet Insulin Glargine,Hum.rec.anlog [Toujeo Solostar] 70 unit SQ QAM Lisinopril [Zestril] 10 mg PO DAILY Carvedilol [Coreg] 6.25 mg PO BID Nitroglycerin Patch [Nitro Dur] 0.4 mg TOP DAILY #30 patch Lactulose [Constulose] 30 ml PO BID Hydroxyzine HCl 50 mg PO BID Sucralfate [Carafate] 1 gm PO QID Furosemide [Lasix] 60 mg PO DAILY Gabapentin [Neurontin] 800 mg PO QID #120 tablet Discontinued Clarithromycin 500 mg PO .BID X 7D Oseltamivir Phosphate [Tamiflu] 75 mg PO BID #10 cap O2 Device: Nasal Cannula Oxygen to be used after Discharge: Continuous Diet at Discharge: Diabetic, 2200 Calorie, High Fiber Activity: As Tolerated Call Office For: Fever over 101 F Discontinue use of:: Alcohol, All Illegal Substances, All Types of Tobacco - DC Summary Notes Hospital Course Note:: Discharge summary on patient named ANDREW STANFORD admitted to [facility] on 03/12/16 by Tim Hernández MD. Date of discharge is []. Patient has initially presented to emergency room on March 12 for evaluation of worsening difficulties breathing cough phlegm production chest tightness and wheezes.. Of note is that patient was recently diagnosed with flu and started on Tamiflu. She has also received p.o. antibiotics as outpatient with no significant improvement. Upon arrival in ED patient was found to be in moderate respiratory distress hypoxic tachypneic and tachycardic. Please refer to admission note for further details. Initial chest x-ray showed bilateral bibasilar opacities, UA was positive. Patient is admitted to general medical floor outpatient regimen for chronic medical conditions was continued. Supplemental O2 was provided, she required nebulized bronchodilators and IV steroids. Pulmonary status has slowly but progressively improved and stabilized and she was weaned down to 2 L nasal cannula. Treatment of IV antibiotics was continued. Urine culture grew enterococcus susceptible penicillins quinolones and Macrobid. Based on culture results and patient allergies she has received IV vancomycin throughout remaining part of hospitalization. Blood sugar remained under good control with no episodes of hypoglycemia. Her activity level was gradually advanced and by time of discharge patient is able to ambulate with minimal exertional dyspnea. She required potassium and magnesium supplements and her renal function remained normal. She was mildly anemic however did not meet criteria for blood transfusion. It was felt that by March 17 she has reached maximum benefit of inpatient therapy and in clinically stable improved condition she has been discharged home to the care of the family and her PCP. Home health services were offered to her however she has declined that. Copy to PCP. Total Time: 45 min. Code: 72154 (>30min.) - Physical Exam Vital Signs: Last Vital Signs Temp 98 F 03/17/16 06:00 Pulse 66 03/17/16 06:00 Resp 18 03/17/16 06:00 BP 158/73 03/17/16 06:00 Pulse Ox 97 03/17/16 06:00 Oxygen Pulse Oxygen Saturation 97 O2 Device Nasal Cannula Oxygen Flow Rate 2 Fraction of Inspired Oxygen ( 40 FIO2) Constitutional: Alert, Cachectic, Distress, Restless Oriented to: Time, Person, Place - HEENT Head: Normal Eye: Normal. negative: Pale Conjunctiva, Scleral Icterus Oropharynx: Normal. negative: Membranes Dry ENT EAC: Normal Nose: No Symptoms Reported - Respiratory/Cardiovascular Respiratory: Diminished, Rhonchi Cardiovascular: Normal, Systolic murmur - GI Auscultation: Normal, Absent Tenderness: Non tender Guerrier's Sign: Negative Rectal Exam: Deferred - Exam Deferred: Yes - Musculoskeletal Back: Normal Extremities: Normal. negative: Edema, Pedal Edema - Integumentary Skin: Normal, Warm, Dry Lymphatics: Normal - Neurologic Memory Impaired: Normal Motor Function: Normal Cranial Nerve: Normal Cerebellar: Normal Mood Description: Normal, Anxious Thought: Coherent - Other Exam Other Exam Findings: Allergies Penicillins Allergy (Intermediate, Verified 03/12/16 20:59) Hives* ciprofloxacin [From Cipro] Allergy (Unknown, Verified 03/12/16 20:59) Rash-Generalized ciprofloxacin HCl [From Cipro] Allergy (Unknown, Verified 03/12/16 20:59) Rash-Generalized amoxicillin [Amoxicillin] Allergy (Verified 03/12/16 20:59) Rash-Generalized doxycycline Allergy (Verified 03/12/16 20:59) Rash-Generalized Last Vital Signs Temp 98 F 03/17/16 06:00 Pulse 70 03/17/16 08:00 Resp 20 03/17/16 08:00 BP 158/73 03/17/16 06:00 Pulse Ox 93 03/17/16 08:00 03/17/16 06:00 03/17/16 06:00 Abnormal Lab Results 03/16/16 03/16/16 03/16/16 11:35 16:19 20:30 RBC Hgb Hct Plt Count Potassium Chloride Carbon Dioxide BUN Glucose POC Capillary Glucose 133 H 379 H 488 H 03/16/16 03/17/16 03/17/16 23:05 05:20 05:38 RBC Hgb Hct Plt Count Potassium Chloride Carbon Dioxide BUN Glucose POC Capillary Glucose 378 H 60 L 100 H 03/17/16 03/17/16 06:00 06:00 RBC 3.14 L Hgb 9.1 L D Hct 27.6 L Plt Count 84 L Potassium 3.2 L Chloride 96 L Carbon Dioxide 39 H BUN 22 H Glucose 125 H POC Capillary Glucose Discharge Home Medication List Simvastatin [Zocor] 20 mg PO HS 09/07/12 [History Confirmed 03/13/16] Pantoprazole Sodium [Protonix] 40 mg PO BID 03/23/13 [History Confirmed 03/13/16 ] Fenofibrate [Lofibra] 160 mg PO HS 05/28/13 [History Confirmed 03/13/16] Metformin HCl [Metformin HCl ER] 1,000 mg PO BID 06/20/13 [History Confirmed 05/24] Glipizide 5 mg PO BID 12/22/14 [History Confirmed 03/13/16] Insulin Aspart [Novolog] 0 units SQ .SSI 12/23/14 [History Confirmed 03/13/16] Ferrous Sulfate [Iron] 325 mg PO TID 12/27/14 [History Confirmed 03/13/16] Oxycodone HCl [Oxycodone Immediate Release] 10 mg PO Q8H PRN 04/09/15 [History Confirmed 03/13/16] Montelukast Sodium [Singulair] 10 mg PO HS #30 tablet 04/11/15 [Rx Confirmed 05/24] Insulin Glargine,Hum.rec.anlog [Dillon Gimenez] 70 unit SQ QAM 05/30/15 [ History Confirmed 03/13/16] Carvedilol [Coreg] 6.25 mg PO BID 07/18/15 [History Confirmed 03/13/16] Lisinopril [Zestril] 10 mg PO DAILY 07/18/15 [History Confirmed 03/13/16] Nitroglycerin Patch [Nitro Dur] 0.4 mg TOP DAILY #30 patch 07/25/15 [Rx Confirmed 03/13/16] Hydroxyzine HCl 50 mg PO BID 11/13/15 [History Confirmed 03/13/16] Lactulose [Constulose] 30 ml PO BID 11/13/15 [History Confirmed 03/13/16] Sucralfate [Carafate] 1 gm PO QID 11/26/15 [History Confirmed 03/13/16] Furosemide [Lasix] 60 mg PO DAILY 03/08/16 [History Confirmed 03/13/16] Benzonatate [Tessalon] 100 mg PO TID PRN #20 capsule 03/14/16 [Rx] Albuterol/Ipratropium Neb [Duoneb] 3 ml NEB Q6H #120 nebu 03/17/16 [Rx] Gabapentin [Neurontin] 800 mg PO QID #120 tablet 03/17/16 [Rx] Guaifenesin [Mucinex] 1,200 mg PO BID #20 tbmp.12hr 03/17/16 [Rx] Levofloxacin [Levaquin] 750 mg PO DAILY #5 tablet 03/17/16 [Rx] Prednisone 10 mg PO DAILY #20 tab.ds.pk 03/17/16 [Rx] New Discharge Medications (Rx) Benzonatate [Tessalon] 100 mg PO TID PRN #20 capsule 03/14/16 [Rx] Albuterol/Ipratropium Neb [Duoneb] 3 ml NEB Q6H #120 nebu 03/17/16 [Rx] Gabapentin [Neurontin] 800 mg PO QID #120 tablet 03/17/16 [Rx] Guaifenesin [Mucinex] 1,200 mg PO BID #20 tbmp.12hr 03/17/16 [Rx] Levofloxacin [Levaquin] 750 mg PO DAILY #5 tablet 03/17/16 [Rx] Prednisone 10 mg PO DAILY #20 tab.ds.pk 03/17/16 [Rx] Home Medications Simvastatin [Zocor] 20 mg PO HS 09/07/12 Pantoprazole Sodium [Protonix] 40 mg PO BID 03/23/13 Fenofibrate [Lofibra] 160 mg PO HS 05/28/13 Metformin HCl [Metformin HCl ER] 1,000 mg PO BID 06/20/13 Glipizide 5 mg PO BID 12/22/14 Insulin Aspart [Novolog] 0 units SQ .SSI 12/23/14 Ferrous Sulfate [Iron] 325 mg PO TID 12/27/14 Oxycodone HCl [Oxycodone Immediate Release] 10 mg PO Q8H PRN 04/09/15 Montelukast Sodium [Singulair] 10 mg PO HS #30 tablet 04/11/15 Insulin Glargine,Hum.rec.anlog [Toujeo Solostar] 70 unit SQ QAM 05/30/15 Carvedilol [Coreg] 6.25 mg PO BID 07/18/15 Lisinopril [Zestril] 10 mg PO DAILY 07/18/15 Nitroglycerin Patch [Nitro Dur] 0.4 mg TOP DAILY #30 patch 07/25/15 Hydroxyzine HCl 50 mg PO BID 11/13/15 Lactulose [Constulose] 30 ml PO BID 11/13/15 Sucralfate [Carafate] 1 gm PO QID 11/26/15 Furosemide [Lasix] 60 mg PO DAILY 03/08/16 Benzonatate [Tessalon] 100 mg PO TID PRN #20 capsule 03/14/16 Albuterol/Ipratropium Neb [Duoneb] 3 ml NEB Q6H #120 nebu 03/17/16 Gabapentin [Neurontin] 800 mg PO QID #120 tablet 03/17/16 Guaifenesin [Mucinex] 1,200 mg PO BID #20 tbmp.12hr 03/17/16 Levofloxacin [Levaquin] 750 mg PO DAILY #5 tablet 03/17/16 Prednisone 10 mg PO DAILY #20 tab.ds.pk 03/17/16
[2016-03-17] MEDS: NITROGLYCERIN 0.4 MG PATCH TOP SCH (08:57)
[2016-03-17] MEDS: GLARGINE INSULIN (LANTUS) 100 UNITS/ML PEN SQ SCH (08:57)
[2016-03-17] MEDS ORDERED: GLARGINE INSULIN (LANTUS) 100 UNITS/ML PEN SQ SCH (09:00)
[2016-03-17 09:59] VITALS: BP 113/59; PULSE 67; TEMP 98.1
== END 2016-03-17 12:55 | disposition home or self-care (01) | DRG 189 ==
LOC: ED 20:44 → MPS3 23:52
PROVIDERS: ADMIT Internal Medicine; ATTEND Internal Medicine
PROC: 4A033R1 Measurement of Arterial Saturation, Peripheral, Percutaneous Approach (ICD-10-PCS; principal; 2016-03-12)
DX: J96.21 Acute and chronic respiratory failure with hypoxia (principal); E11.8 Type 2 diabetes mellitus with unspecified complications; I11.0 Hypertensive heart disease with heart failure; I50.9 Heart failure, unspecified; F03.90 Unspecified dementia, unspecified severity, without behavioral disturbance, psychotic disturbance, mood disturbance, and anxiety; N39.0 Urinary tract infection, site not specified; J44.1 Chronic obstructive pulmonary disease with (acute) exacerbation; B95.2 Enterococcus as the cause of diseases classified elsewhere; J11.1 Influenza due to unidentified influenza virus with other respiratory manifestations; D64.9 Anemia, unspecified; K21.9 Gastro-esophageal reflux disease without esophagitis; E87.6 Hypokalemia; I25.10 Atherosclerotic heart disease of native coronary artery without angina pectoris; I48.0 Paroxysmal atrial fibrillation; E78.00 Pure hypercholesterolemia, unspecified; K74.69 Other cirrhosis of liver; M19.90 Unspecified osteoarthritis, unspecified site; I35.0 Nonrheumatic aortic (valve) stenosis; F32.9 Major depressive disorder, single episode, unspecified; F41.9 Anxiety disorder, unspecified; Z66 Do not resuscitate; Z87.440 Personal history of urinary (tract) infections; Z87.11 Personal history of peptic ulcer disease; Z86.73 Personal history of transient ischemic attack (TIA), and cerebral infarction without residual deficits; Z90.49 Acquired absence of other specified parts of digestive tract; Z88.0 Allergy status to penicillin; Z88.1 Allergy status to other antibiotic agents; Z88.3 Allergy status to other anti-infective agents; Z79.84 Long term (current) use of oral hypoglycemic drugs; Z79.4 Long term (current) use of insulin; Z87.891 Personal history of nicotine dependence
CPT/HCPCS: 36415; 36600; 71020; 80048; 80053; 81001; 82803; 82947; 82962; 83036; 83605; 83735; 83880; 85025; 85027; 87040; 87077; 87086; 87186; 93005; 94640; 96365; 96366; 96372; 96375; 98960; 99283; J0360; J0456; J0692; J1650; J2405; J2930; J3370; J3475; J3480; J3490; J7060; J7070; J7620